=== PATIENT | male | born 1965 | race Hispanic/Latino ===

== ENCOUNTER 2017-08-29 14:04 | Inpatient (IN) | payer BC ==
--- NOTE | 2017-08-29 15:22 | C.PDOC ---
History Of Present Illness 51 y/o male presents to ED for prescreen for detox from alcohol. Patient states last drink was this morning. Patient states a month ago he had throat cancer and surgery done and will be due for chemo and radiation the end of this month. Time Seen by Provider: 08/29/17 14:27 Chief Complaint (Nursing): Substance Abuse History Per: Patient History/Exam Limitations: no limitations Onset/Duration Of Symptoms: Hrs Current Symptoms Are (Timing): Still Present Suicide/Self Injury Attempted (Context): None Modifying Factor(s): Alcohol Associated Symptoms: denies: Suicidal Thoughts, Suicidal Plan Involuntary Hold By: None Recent travel outside of the [place]: No Past Medical History Reviewed: Historical Data, Nursing Documentation, Vital Signs Vital Signs: Last Vital Signs Temp 99.1 F 08/29/17 19:41 Pulse 85 08/29/17 19:41 Resp 20 08/29/17 19:41 BP 124/71 08/29/17 19:41 Pulse Ox 99 08/29/17 19:41 - Medical History PMH: No Chronic Diseases Surgical History: No Surg Hx Family History: States: No Known Family Hx - Social History Hx Alcohol Use: Yes Hx Substance Use: No Review Of Systems Constitutional: Negative for: Fever, Chills Gastrointestinal: Negative for: Nausea, Vomiting, Abdominal Pain, Diarrhea Skin: Negative for: Rash Neurological: Negative for: Weakness, Numbness Psych: Negative for: Suicidal ideation Physical Exam - Physical Exam Appears: Well, Non-toxic, No Acute Distress Skin: Normal Color, Warm, Dry Head: Atraumatic, Normacephalic Eye(s): bilateral: Normal Inspection, PERRL, EOMI Oral Mucosa: Moist Neck: Supple Cardiovascular: Rhythm Regular, No Murmur Respiratory: Normal Breath Sounds, No Decreased Breath Sounds, No Rales, No Rhonchi, No Wheezing Gastrointestinal/Abdominal: Soft, No Tenderness Extremity: Normal ROM, No Deformity Extremity: Bilateral: Atraumatic, Normal Color And Temperature, Normal ROM Neurological/Psych: Oriented x3 (Awake and Alert), Normal Speech Gait: Steady ED Course And Treatment - Laboratory Results Result Diagrams: 08/29/17 15:24 08/29/17 15:24 Lab Interpretation: No Acute Changes O2 Sat by Pulse Oximetry: 100 (RA) Pulse Ox Interpretation: Normal Progress Note: Patient is medically cleared for a detox admission. Medical Decision Making Medical Decision Making: Ordered blood work and urinalysis. Disposition - Disposition Disposition: HOSPITALIZED Disposition Time: 19:56 Condition: STABLE - POA Present On Arrival: None - Clinical Impression Clinical Impression: Alcohol dependence - Scribe Statement The provider has reviewed the documentation as recorded by the Dami Cheek All medical record entries made by the Rishabhibkim were at my direction and personally dictated by me. I have reviewed the chart and agree that the record accurately reflects my personal performance of the history, physical exam, medical decision making, and the department course for this patient. I have also personally directed, reviewed, and agree with the discharge instructions and disposition.
[2017-08-29 15:28] LABS: EOS % 0.1 % (0.0-4.0); MONO # 0.7 K/uL (0.0-0.8); NEUT # 3.6 K/uL (1.8-7.0); RED CELL DISTRIBUTION WIDTH 14.5 % (11.5-14.5)
[2017-08-29 15:33] LABS: SQUAMOUS EPITHIAL < 1 /hpf (0-5); URINE BILIRUBIN NEGATIVE (NEGATIVE); URINE BLOOD NEGATIVE (NEGATIVE); URINE CLARITY Hazy (Clear); URINE COLOR Amber (YELLOW); URINE GLUCOSE (UA) NORMAL (Normal); URINE LEUKOCYTE ESTERASE NEG Leu/uL (Negative); URINE PROTEIN 1+ mg/dL (NEGATIVE)
[2017-08-29 15:34] LABS: BASO % 0.7 % (0.0-2.0); HEMOGLOBIN 13.1 g/dL (12.0-18.0); LYMPH # 0.8 K/uL (1.0-4.3); LYMPH % 14.7 % (20.0-40.0); MEAN CELL VOLUME 97.5 fL (80.0-94.0); MEAN CORPUSCULAR HEMOGLOBIN 34.5 pg (27.0-31.0); MEAN CORPUSCULAR HGB CONC 35.4 g/dL (33.0-37.0); MONO % 13.9 % (0.0-10.0); NEUT % 70.6 % (50.0-75.0); RBC 3.79 Mil/uL (4.40-5.90); WHITE BLOOD COUNT 5.1 K/uL (4.8-10.8)
[2017-08-29 15:40] LABS: ALB/GLOB RATIO 1.4 (1.0-2.1); ALBUMIN 4.3 g/dL (3.5-5.0); ALT/SGPT 64 U/L (21-72); AST/SGOT 129 U/L (17-59); BLOOD UREA NITROGEN 12 mg/dL (9-20); CALCIUM 9.2 mg/dl (8.6-10.4); GFR AFRICAN-AMERICAN > 60; GFR NON-AFRICAN AMERICAN > 60
[2017-08-29 16:14] LABS: BARBITURATES, UR NEGATIVE (NEGATIVE); OPIATES, UR NEGATIVE (NEGATIVE); PHENCYCLIDINE, UR NEGATIVE (NEGATIVE)
[2017-08-29 16:18] LABS: BENZODIAZEPINES, UR POSITIVE (NEGATIVE)
--- NOTE | 2017-08-29 19:15 | CP.PCM.HP ---
History of Present Illness - History of Present Illness History of Present Illness: PGY1 Medicine Note for Dr. Keller Patient is a 51 year old male with a past medical history of alcohol abuse and throat cancer s/p surgery (performed on 08/03/17). Patient presented for detox from alcohol. He recently had surgery for his throat cancer and is scheduled to start chemo and radiation at the end of the month. He has previously gone through detox approximately 4 years ago, which resulted in him having a seizure after quitting. He was sober for 2 years but has "fallen off the wagon" multiple times over the past two years. When he got his diagnosis of throat cancer, he started binge drinking heavily again and has been drinking 1-2 pints of vodka per day for the past 3 to 4 months. He wants to quit alcohol and chewing tobacco prior to starting chem and radiation because "I want to give myself the best chance to live a good, long life." Patient reports his last drink was this morning. He has notice a little bit of a hand tremor but has no other complaints at this time. Denies fevers, chills, nausea, vomiting, diarrhea , constipation, chest pain, shortness of breath, palpitations, abdominal pain, headaches, blurred vision, diaphoresis, numbness or tingling. PMH: alcohol abuse and throat cancer PSH: throat surgery (08/03/17) and cholecystectomy Family: mom of lung cancer, dad of heart/carotid disease Social: active chewing tobacco, drinks 1-2 pints of vodka per night, denies illicit drug use Meds: none Allergies: NKDA Patient had surgery with Dr. Cowan (ENT) at [facility] on 08/03/17. Planning to start chemo and radiation at [facility] at the end of the month. Present on Admission - Present on Admission Any Indicators Present on Admission: No Review of Systems - Review of Systems All systems: reviewed and no additional remarkable complaints except (as per HPI ) Past Patient History - Infectious Disease Hx of Infectious Diseases: None - Past Social History Smoking Status: Light Smoker < 10 Cigarettes Daily - CARDIAC Hx Cardiac Disorders: No Hx Hypertension: No - PULMONARY Hx Tuberculosis: No - NEUROLOGICAL HX Cerebrovascular Accident: No Hx Seizures: No - HEMATOLOGICAL/ONCOLOGICAL Hx Cancer: Yes (s/p throat cancer surgery August 03, 2017) Hx Human Immunodeficiency Virus (HIV): No - GENITOURINARY/GYNECOLOGICAL Hx Sexually Transmitted Disorders: No - PSYCHIATRIC Hx Substance Use: No - ANESTHESIA Hx Anesthesia: No Meds Allergies/Adverse Reactions: Allergies Allergy/AdvReac Type Severity Reaction Status Date / Time No Known Allergies Allergy Unverified 08/29/17 14:36 Physical Exam - Constitutional Appears: Non-toxic, No Acute Distress - Head Exam Head Exam: ATRAUMATIC, NORMOCEPHALIC - Eye Exam Eye Exam: EOMI, Normal appearance - ENT Exam ENT Exam: Mucous Membranes Moist - Neck Exam Neck exam: Negative for: Lymphadenopathy - Respiratory Exam Respiratory Exam: Clear to Auscultation Bilateral, NORMAL BREATHING PATTERN. absent: Accessory Muscle Use, Rales, Rhonchi, Wheezes, Respiratory Distress - Cardiovascular Exam Cardiovascular Exam: REGULAR RHYTHM, +S1, +S2 - GI/Abdominal Exam GI & Abdominal Exam: Normal Bowel Sounds, Soft. absent: Distended, Firm, Guarding, Rebound, Rigid, Tenderness - Extremities Exam Extremities exam: Negative for: calf tenderness, pedal edema, tenderness Additional comments: mild hand tremors noted. - Neurological Exam Neurological exam: Alert, CN II-XII Intact, Oriented x3 Additional comments: mild hand tremors noted - Psychiatric Exam Psychiatric exam: Normal Affect, Normal Mood - Skin Skin Exam: Dry, Warm Results - Vital Signs Recent Vital Signs: Last Vital Signs Temp 98.9 F 08/29/17 14:29 Pulse 88 08/29/17 18:30 Resp 18 08/29/17 18:30 BP 128/82 08/29/17 18:30 Pulse Ox 99 08/29/17 18:30 - Labs Result Diagrams: 08/29/17 15:24 08/29/17 15:24 Labs: Laboratory Results - last 24 hr 08/29/17 08/29/17 08/29/17 15:24 15:24 15:24 WBC 5.1 RBC 3.79 L Hgb 13.1 Hct 36.9 MCV 97.5 H MCH 34.5 H MCHC 35.4 RDW 14.5 Plt Count 84 L MPV 8.0 Neut % (Auto) 70.6 Lymph % (Auto) 14.7 L [place] % (Auto) 13.9 H Eos % (Auto) 0.1 Baso % (Auto) 0.7 Neut # (Auto) 3.6 Lymph # (Auto) 0.8 L [place] # (Auto) 0.7 Eos # (Auto) 0.0 Baso # (Auto) 0.0 Differential Comment Sodium 140 Potassium 5.1 Chloride 104 Carbon Dioxide 25 Anion Gap 17 BUN 12 Creatinine 0.8 Est GFR ( Amer) > 60 Est GFR (Non-Af Amer) > 60 Random Glucose 91 Calcium 9.2 Total Bilirubin 2.8 H AST 129 H ALT 64 Alkaline Phosphatase 100 Total Protein 7.4 Albumin 4.3 Globulin 3.1 Albumin/Globulin Ratio 1.4 Urine Color [place] Urine Clarity Hazy Urine pH 5.0 Ur Specific [place] 1.026 Urine Protein 1+ H Urine Glucose (UA) Normal Urine Ketones Trace Urine Blood Negative Urine Nitrate Negative Urine Bilirubin Negative Urine Urobilinogen 2.0 Ur Leukocyte Esterase Neg Urine WBC (Auto) 3 Urine RBC (Auto) 2 Ur Squamous Epith Cells < 1 Hyaline Casts 11-20 H Urine Opiates Screen Urine Methadone Screen Ur Barbiturates Screen Ur Phencyclidine Scrn Ur Amphetamines Screen U Benzodiazepines Scrn U Oth Cocaine Metabols U Cannabinoids Screen Alcohol, Quantitative < 10 08/29/17 15:24 WBC RBC Hgb Hct MCV MCH MCHC RDW Plt Count MPV Neut % (Auto) Lymph % (Auto) [place] % (Auto) Eos % (Auto) Baso % (Auto) Neut # (Auto) Lymph # (Auto) [place] # (Auto) Eos # (Auto) Baso # (Auto) Differential Comment Sodium Potassium Chloride Carbon Dioxide Anion Gap BUN Creatinine Est GFR ( Amer) Est GFR (Non-Af Amer) Random Glucose Calcium Total Bilirubin AST ALT Alkaline Phosphatase Total Protein Albumin Globulin Albumin/Globulin Ratio Urine Color Urine Clarity Urine pH Ur Specific [place] Urine Protein Urine Glucose (UA) Urine Ketones Urine Blood Urine Nitrate Urine Bilirubin Urine Urobilinogen Ur Leukocyte Esterase Urine WBC (Auto) Urine RBC (Auto) Ur Squamous Epith Cells Hyaline Casts Urine Opiates Screen Negative Urine Methadone Screen Negative Ur Barbiturates Screen Negative Ur Phencyclidine Scrn Negative Ur Amphetamines Screen Negative U Benzodiazepines Scrn Positive U Oth Cocaine Metabols Negative U Cannabinoids Screen Negative Alcohol, Quantitative Assessment & Plan - Assessment and Plan (Free Text) Plan: Alcohol Abuse CIWA protocol Aspiration precaution Seizure precaution Fall risk Banana Bag Ativan 2mg IVP q4h taper scheduled Ativan 2mg IVP q4h prn Ativan 2mg IM q4h prn Clonidine 0.1 mg PO q4h prn - give for SBP >160 Prophylactic Care SCDs Lovenox 40mg SC daily Protonix 40mg PO daily Case discussed with Dr. Arianna Daniels Kimberly PGY1
[2017-08-29] MEDS ORDERED: Folic Acid 1 MG, Thiamine 100 MG, Multivitamin (MVI) 10 ML in Dextrose 5% In Water 1,00... IV SCH ×2 (19:30)
[2017-08-30 08:06] LABS: BASO % 0.5 % (0.0-2.0); EOS % 1.1 % (0.0-4.0); HEMOGLOBIN 12.1 g/dL (12.0-18.0); LYMPH % 31.2 % (20.0-40.0); MEAN CELL VOLUME 98.1 fL (80.0-94.0); MEAN CORPUSCULAR HGB CONC 34.7 g/dL (33.0-37.0); MEAN PLATELET VOLUME 7.8 fL (7.2-11.7); MONO # 0.5 K/uL (0.0-0.8); MONO % 16.1 % (0.0-10.0); NEUT # 1.6 K/uL (1.8-7.0); NEUT % 51.1 % (50.0-75.0); NRBC % 0.2 % (0.0-2.0); RBC 3.56 Mil/uL (4.40-5.90); RED CELL DISTRIBUTION WIDTH 14.9 % (11.5-14.5); WHITE BLOOD COUNT 3.1 K/uL (4.8-10.8)
[2017-08-30 08:09] LABS: PROTHROMBIN TIME 11.3 SECONDS (9.7-12.2)
[2017-08-30 08:35] LABS: ALB/GLOB RATIO 1.3 (1.0-2.1); ALBUMIN 3.7 g/dL (3.5-5.0); ALT/SGPT 57 U/L (21-72); AST/SGOT 74 U/L (17-59); BLOOD UREA NITROGEN 10 mg/dL (9-20); CALCIUM 8.7 mg/dl (8.6-10.4); GFR AFRICAN-AMERICAN > 60; GFR NON-AFRICAN AMERICAN > 60
[2017-08-30] MEDS: Pantoprazole 40 mg EC Tab PO SCH (09:37)
[2017-08-30] MEDS ORDERED: Enoxaparin 40 mg Syringe SC SCH (10:00)
--- NOTE | 2017-08-30 11:48 | CP.PCM.PN ---
<Jeremiah Harris - Last Filed: 08/30/17 18:33> Subjective - Date & Time of Evaluation Date of Evaluation: 08/30/17 Time of Evaluation: 09:30 - Subjective Subjective: PGY1 Medicine Note for Dr. Deutsch Patient was seen and examined at bedside this morning. No acute events overnight. Patient reports mild tremors in hands but otherwise has no complaints. He has chewing tobacco at bedside. He requests a nicotine patch so he does not need to chew tobacco. Denies fevers, chills, nausea, vomiting, diarrhea, constipation, chest pain, shortness of breath, palpitations, abdominal pain, headaches, blurred vision, diaphoresis, numbness or tingling. Objective - Vital Signs/Intake and Output Vital Signs (last 24 hours): Temp Pulse Resp BP Pulse Ox 98.0 F 69 20 146/91 H 98 08/30/17 08:03 08/30/17 08:03 08/30/17 08:03 08/30/17 08:03 08/30/17 08:03 Intake and Output: 08/30/17 08/30/17 06:59 18:59 Intake Total 450 Balance 450 - Medications Medications: Current Medications Clonidine HCl (Catapres) 0.1 mg PO Q4H PRN PRN Reason: Symptoms of alcohol withdrawl Enoxaparin Sodium (Lovenox) 40 mg SC DAILY [facility] Last Admin: 08/30/17 09:36 Dose: 40 mg Folic Acid 1 mg/ Thiamine HCl 100 mg/ Multivitamins/Vitamin C 10 ml/ Dextrose 1 ,011.2 mls @ 100 mls/hr IV Q24H [facility] Last Admin: 08/29/17 20:13 Dose: 100 mls/hr Lorazepam (Ativan) 2 mg IVP Q4H PRN PRN Reason: Symptoms of alcohol withdrawl Lorazepam (Ativan) 2 mg IM Q4H PRN PRN Reason: Symptoms of alcohol withdrawl Lorazepam (Ativan) 2 mg IVP Q4 [facility] PRN Reason: Taper Stop: 09/03/17 19:21 Last Admin: 08/30/17 08:28 Dose: 2 mg Nicotine (Nicoderm Cq) 1 patch TD DAILY [facility] Pantoprazole Sodium (Protonix Ec Tab) 40 mg PO DAILY [facility] Last Admin: 08/30/17 09:37 Dose: 40 mg - Labs Labs: 08/30/17 07:51 08/30/17 07:51 PT 11.3 SECONDS (9.7-12.2) 08/30/17 07:51 INR 1.0 08/30/17 07:51 APTT 31 SECONDS (21-34) 08/30/17 07:51 - Constitutional Appears: Non-toxic, No Acute Distress - Head Exam Head Exam: ATRAUMATIC - Eye Exam Eye Exam: EOMI, Normal appearance Pupil Exam: NORMAL ACCOMODATION - ENT Exam ENT Exam: Mucous Membranes Moist, Normal Exam - Neck Exam Neck Exam: absent: Lymphadenopathy - Respiratory Exam Respiratory Exam: Clear to Ausculation Bilateral, NORMAL BREATHING PATTERN. absent: Accessory Muscle Use, Rales, Rhonchi, Wheezes, Respiratory Distress - Cardiovascular Exam Cardiovascular Exam: REGULAR RHYTHM, +S1, +S2 - GI/Abdominal Exam GI & Abdominal Exam: Soft, Normal Bowel Sounds. absent: Distended, Firm, Guarding, Rigid - Extremities Exam Extremities Exam: absent: Calf Tenderness, Pedal Edema - Neurological Exam Neurological Exam: Alert, Awake, CN II-XII Intact. absent: Oriented x3 Additional comments: mild hand tremors - Psychiatric Exam Psychiatric exam: Normal Affect, Normal Mood - Skin Skin Exam: Dry, Warm Assessment and Plan - Assessment and Plan (Free Text) Plan: Alcohol Abuse [facility] protocol Aspiration precaution Seizure precaution Fall risk Folic Acid 1mg PO daily Multivitamin 1 tab PO daily Thiamine 100mg PO daily Librium taper Librium 25mg PO q4h prn Clonidine 0.1 mg PO q4h prn - give for SBP >160 Tobacco abuse Started on Nicotine patch 21mg/24hr TD daily threw chewing tobacco into trash can. Prophylactic Care No anticoagulation due to thrombocytopenia SCDs Protonix 40mg PO daily Patient is medically stable to be transferred to detox. Psych will be taking over as primary care. Please consult as needed. Medicine team signing off. Case discussed with Dr. La Nena Daniels Kimberly PGY1 <Cristian Deutsch - Last Filed: 08/30/17 19:01> Objective - Vital Signs/Intake and Output Vital Signs (last 24 hours): Temp Pulse Resp BP Pulse Ox 99 F 87 18 128/75 100 08/30/17 16:41 08/30/17 16:41 08/30/17 16:41 08/30/17 16:41 08/30/17 16:41 Intake and Output: 08/30/17 08/30/17 06:59 18:59 Intake Total 450 Balance 450 - Medications Medications: Current Medications Chlordiazepoxide (Librium) 25 mg PO Q6H [facility]RY PRN Reason: Taper Stop: 09/04/17 11:59 Last Admin: 08/30/17 17:24 Dose: 25 mg Chlordiazepoxide (Librium) 25 mg PO Q4H PRN PRN Reason: Alcohol Withdrawal Clonidine HCl (Catapres) 0.1 mg PO Q4H PRN PRN Reason: Symptoms of alcohol withdrawl Folic Acid (Folic Acid) 1 mg PO DAILY [facility] Last Admin: 08/30/17 12:54 Dose: 1 mg Multivitamins (Hexavitamin) 1 tab PO DAILY [facility] Last Admin: 08/30/17 12:54 Dose: 1 tab Nicotine (Nicoderm Cq) 1 patch TD DAILY [facility] Last Admin: 08/30/17 12:54 Dose: 1 patch Pantoprazole Sodium (Protonix Ec Tab) 40 mg PO DAILY [facility] Last Admin: 08/30/17 09:37 Dose: 40 mg Thiamine HCl (Vitamin B1 Tab) 100 mg PO DAILY [facility] Last Admin: 08/30/17 12:53 Dose: 100 mg Trazodone HCl (Desyrel) 50 mg PO HS PRN PRN Reason: Insomnia - Labs Labs: 08/30/17 07:51 08/30/17 07:51 PT 11.3 SECONDS (9.7-12.2) 08/30/17 07:51 INR 1.0 08/30/17 07:51 APTT 31 SECONDS (21-34) 08/30/17 07:51 Attending/Attestation - Attestation I have personally seen and examined this patient.: Yes I have fully participated in the care of the patient.: Yes I have reviewed all pertinent clinical information, including history, physical exam and plan: Yes Notes (Text): 08/30/17 18:57 Medical attending: Patient was seen and examined by me, agree with the above note by the resident It needs to be noted that when we walked into the room that we saw that there was a jarr of chewing tobbaco at his bedside table. This made for a very awkward conversation - I pointed out to the patient that he already has a malignancy due to his history of chewing tobbaco as well as alcohol - it took about 30 seconds before the patient even acknowledged that he needed to change his life style. After completeling detox he explains that he is trying to do chemo at [facility]
[2017-08-30] MEDS: Multiple Vitamins Tab PO SCH (12:54)
--- NOTE | 2017-08-31 08:28 | PCM.PSYCH ---
Initial Psychiatric Evaluation - Initial Psychiatric Evaluation Type of Admission: Voluntary Legal Status: Capacity Chief Complaint (in patient's own words): "Alcohol" History of Present Illness and Precipitating Events: The patient is seen, chart reviewed and case discussed. This is a 51-year-old male, with 2 children, both adults, lives with his , employed. The patient is using 2 pints of liquor every day and reports significant withdrawal symptoms. He has a long history of alcohol use and complications, but he also used on and off over the years and he finally relapsed 2 years ago. He denies drug use He has mild depressive symptoms He was also admitted to medicine on his first day because of significant withdrawal symptoms as well as low platelets. Past psych history: He was treated for depression years ago. Family psych history: Brother of drug and alcohol use. Father had alcohol dependence but clean. Medical history: He had conquered cancer and low platelets. Current Medications: Active Medications Generic Name Dose Route Start Last Admin Trade Name Freq PRN Reason Stop Dose Admin Chlordiazepoxide 25 mg 08/30/17 12:00 08/31/17 06:10 Librium PO 09/04/17 11:59 25 mg Q6H [facility]ENRY Administration Taper Chlordiazepoxide 25 mg 08/30/17 12:07 Librium PO Q4H PRN Alcohol Withdrawal Clonidine HCl 0.1 mg 08/29/17 19:18 Catapres PO Q4H PRN Symptoms of alcohol withdrawl Folic Acid 1 mg 08/30/17 12:15 08/30/17 12:54 Folic Acid PO 1 mg DAILY [facility] Administration Multivitamins 1 tab 08/30/17 12:15 08/30/17 12:54 Hexavitamin PO 1 tab DAILY [facility] Administration Nicotine 1 patch 08/30/17 11:45 08/30/17 12:54 Nicoderm Cq TD 1 patch DAILY [facility] Administration Pantoprazole Sodium 40 mg 08/30/17 10:00 08/30/17 09:37 Protonix Ec Tab PO 40 mg DAILY [facility] Administration Thiamine HCl 100 mg 08/30/17 12:15 08/30/17 12:53 Vitamin B1 Tab PO 100 mg DAILY [facility] Administration Trazodone HCl 50 mg 08/30/17 12:07 08/30/17 21:44 Desyrel PO 50 mg HS PRN Administration Insomnia Past Psychiatric History - Past Psychiatric History Previous Treatment History: Intensive Outpatient Pertinent Medical Hx (Current Medical&Sleep Prob, Allergies): Allergies Allergy/AdvReac Type Severity Reaction Status Date / Time No Known Allergies Allergy Unverified 08/29/17 14:36 Review of Systems - Neurological Neurological: Tremor - Psychiatric Psychiatric: Abnormal Sleep Pattern, Anxiety, Change in Appetite, Difficulty Concentrating. absent: Hallucinations, Homicidal Ideation, Paranoia, Suicidal Ideation Mental Status Examination - Personal Presentation Personal Presentation: Looks stated age - Affect Affect: Constricted - Motor Activity Motor Activity: Calm - Reliability in Providing Information Reliability in Providing Information: Good - Speech Speech: Organized - Mood Mood: Depressed, Anxious - Formal Thought Process Formal Thought Process: No Impairment - Cognitive Functions Orientation: Person, Place, Situation, Time Sensorium: Alert Attention/Concentration: Attentive Estimate of Intelligence: Average Judgement: Intact, as evidence by: Insight regarding need for hospitalization Memory: Recent intact, as evidence by: Ability to recall events of the day, Remote intact, as evidenced by: Abilit to recall sig. life events - Risk Risk: Withdrawal, Diminished functioning - Strength & Assets Inventory Strength & Assets Inventory: Cooperative - Limitations Limitations: Other DSM 5 DX - DSM 5 DSM 5 Diagnosis: Alcohol withdrawal with complication Alcohol use disorder, severe Depressive disorder unspecified - Recommended/Plan of Treatment Treatment Recommendations and Plan of Treatment: Taper with Librium Gabapentin for augmentation if needed As needed medications All risks, benefits and alternatives of the meds discussed, and the pt agreed and understood. No medications for depression for now but CBT and support Attend groups and activities Supportive therapy and psychoeducation [place] for abstinence CBT for relapse prevention Encourage MAT Refer to rehab or IOP, and self-help groups Smoking cessation with OH Nicotine patch if needed 34 min Projected ELOS: 5 days Prognosis: Good with treatment and good aftercare Discharge Plan and Discharge Criteria: Refer to IOP and consider naltrexone/Topamax - Smoking Cessation Smoking Cessation Initiated: Yes
[2017-08-31 08:32] LABS: BASO % 0.4 % (0.0-2.0); EOS % 1.6 % (0.0-4.0); HEMOGLOBIN 11.7 g/dL (12.0-18.0); LYMPH % 32.9 % (20.0-40.0); MEAN CORPUSCULAR HEMOGLOBIN 34.2 pg (27.0-31.0); MEAN CORPUSCULAR HGB CONC 34.6 g/dL (33.0-37.0); MEAN PLATELET VOLUME 8.5 fL (7.2-11.7); MONO # 0.4 K/uL (0.0-0.8); MONO % 14.5 % (0.0-10.0); NEUT # 1.5 K/uL (1.8-7.0); NEUT % 50.6 % (50.0-75.0); NRBC % 0.1 % (0.0-2.0); RBC 3.42 Mil/uL (4.40-5.90); RED CELL DISTRIBUTION WIDTH 15.4 % (11.5-14.5)
[2017-08-31 08:41] LABS: ALB/GLOB RATIO 1.3 (1.0-2.1); ALBUMIN 3.6 g/dL (3.5-5.0); ALT/SGPT 52 U/L (21-72); AST/SGOT 60 U/L (17-59); BLOOD UREA NITROGEN 11 mg/dL (9-20); CALCIUM 9.1 mg/dl (8.6-10.4); GFR AFRICAN-AMERICAN > 60; GFR NON-AFRICAN AMERICAN > 60
[2017-08-31] MEDS: Pantoprazole 40 mg EC Tab PO SCH (09:16)
[2017-08-31] MEDS: Multiple Vitamins Tab PO SCH (09:16)
[2017-09-01 08:34] LABS: BASO % 0.4 % (0.0-2.0); EOS # 0.1 K/uL (0.0-0.7); EOS % 1.5 % (0.0-4.0); HEMOGLOBIN 11.7 g/dL (12.0-18.0); LYMPH # 1.1 K/uL (1.0-4.3); LYMPH % 29.4 % (20.0-40.0); MEAN CELL VOLUME 99.1 fL (80.0-94.0); MEAN CORPUSCULAR HEMOGLOBIN 34.2 pg (27.0-31.0); MEAN CORPUSCULAR HGB CONC 34.5 g/dL (33.0-37.0); MEAN PLATELET VOLUME 7.6 fL (7.2-11.7); MONO # 0.6 K/uL (0.0-0.8); MONO % 15.3 % (0.0-10.0); NEUT % 53.4 % (50.0-75.0); RBC 3.41 Mil/uL (4.40-5.90); RED CELL DISTRIBUTION WIDTH 15.2 % (11.5-14.5); WHITE BLOOD COUNT 3.7 K/uL (4.8-10.8)
[2017-09-01 08:53] LABS: ALB/GLOB RATIO 1.3 (1.0-2.1); ALBUMIN 3.6 g/dL (3.5-5.0); ALT/SGPT 51 U/L (21-72); AST/SGOT 60 U/L (17-59); BLOOD UREA NITROGEN 15 mg/dL (9-20); CALCIUM 8.9 mg/dl (8.6-10.4); GFR AFRICAN-AMERICAN > 60; GFR NON-AFRICAN AMERICAN > 60
--- NOTE | 2017-09-01 09:13 | PCM.PYCHPN ---
Psychiatric Progress Note - Psychiatric Progress Note Patient seen today, length of contact: 25 min Patient Chief Complaint: "I am depressed" Problems Identified/Issues Discussed: The pt is seen, chart reviewed, case discussed with staff. Support and psychoeducation given, CBT and NM used briefly No new wdw symptoms reported, improving slowly and needs more time He revealed his depression and "lots of" stressors, ie he may lose his job bc of a recent DUI No SEs from medications, risks discussed, incl. Lexapro for depression. After care discussed Support given Medication Change: Yes (Detox changes daily, add lexapro) Medical Record Reviewed: Yes Mental Status Examination - Cognitive Function Orientation: Person, Place, Situation, Time Memory: Intact Attention: WNL Concentration: Poor Association: WNL Fund of Knowledge: WNL - Mood Mood: Depressed, Anxious - Affect Affect: Constricted - Speech Speech: Appropriate - Formal Thought Process Formal Thought Process: No Impairment - Suicidal Ideation Suicidal Ideation: No - Homicidal Ideation Homicidal Ideation: No Goal/Treatment Plan - Goal/Treatment Plan Need for Continued Stay: Discharge may exacerbated symptoms, Severe functional impairment Progress Toward Problem(s) and Goals/Treatment Plan: Taper with Librium Gabapentin for augmentation if needed lexapro for depression As needed medications All risks, benefits and alternatives of the meds discussed, and the pt agreed and understood. No medications for depression for now but CBT and support Attend groups and activities Supportive therapy and psychoeducation NM for abstinence CBT for relapse prevention Encourage MAT Refer to rehab or IOP, and self-help groups Smoking cessation with NM Nicotine patch if needed Estimated Date of D/C: 09/03/17 - Smoking Cessation Smoking Cessation Initiated: Yes
--- NOTE | 2017-09-01 09:18 | PCM.BM ---
<FabricioHakeem - Last Filed: 09/01/17 09:16> Treatment assets and liabiliti Patient Assests: motivated, ADL independent, negotiates basic needs Patient Liabilities: poor support system, substance abuse - Milieu Protocol Maintain good personal hygiene: daily Encourage regular showers, daily Remind patient to perform daily oral care, daily Assist patient to perform ADL's Maintain personal safety: every shift Educate patient to report safety concerns to staff, every shift Monitor environment for contraband/sharps Medication safety: Monitor for expected outcome, potential side effects: every shift, Assess barriers to learning: every shift, Assess readiness for medication education: every shift Milieu Narrative: Taper with Librium Gabapentin for augmentation if needed As needed medications All risks, benefits and alternatives of the meds discussed, and the pt agreed and understood. No medications for depression for now but CBT and support Attend groups and activities Supportive therapy and psychoeducation [place] for abstinence CBT for relapse prevention Encourage MAT Refer to rehab or IOP, and self-help groups Smoking cessation with CA Nicotine patch if needed 34 min Discharge/Continuing Care - Treatment Team Participation Patient/Family/SO Statement: Taper with Librium Gabapentin for augmentation if needed As needed medications All risks, benefits and alternatives of the meds discussed, and the pt agreed and understood. No medications for depression for now but CBT and support Attend groups and activities Supportive therapy and psychoeducation [place] for abstinence CBT for relapse prevention Encourage MAT Refer to rehab or IOP, and self-help groups Smoking cessation with CA Nicotine patch if needed 34 min <Parish Shelton - Last Filed: 09/01/17 13:57> - Diagnosis (1) Alcohol dependence Status: Acute Interventions: 09/01/17 13:57 * Assess 7x/week regarding severity of withdrawal * Educate regarding risks, benefits, side effects and alternatives of medications * Use Motivational Interviewing for abstinence * Use CBT for relapse prevention * Medication management for withdrawal symptoms * Encourage medication assisted treatment *
[2017-09-01] MEDS: Multiple Vitamins Tab PO SCH (09:41)
[2017-09-01] MEDS: Pantoprazole 40 mg EC Tab PO SCH (09:41)
--- NOTE | 2017-09-01 18:57 | PCM.PYCHPN ---
Psychiatric Progress Note - Psychiatric Progress Note Patient seen today, length of contact: 16 min Patient Chief Complaint: "Anxious" Problems Identified/Issues Discussed: The pt is seen, chart reviewed, case discussed with staff. The pt is compliant with medications and reports no side-effects. Symptoms are improving but needs more time to stabilize. After care discussed, support and psychoeducation given. Anxiety and depression discussed He is also worried about his after care Medication Change: Yes (Detox changes daily) Medical Record Reviewed: Yes Mental Status Examination - Cognitive Function Orientation: Person, Place, Situation, Time Memory: Intact Attention: WNL Concentration: Poor Association: WNL Fund of Knowledge: WNL - Mood Mood: Depressed, Anxious - Affect Affect: Constricted - Speech Speech: Appropriate - Formal Thought Process Formal Thought Process: No Impairment - Suicidal Ideation Suicidal Ideation: No - Homicidal Ideation Homicidal Ideation: No Goal/Treatment Plan - Goal/Treatment Plan Need for Continued Stay: Discharge may exacerbated symptoms, Severe functional impairment Progress Toward Problem(s) and Goals/Treatment Plan: Taper with Librium Gabapentin for augmentation if needed lexapro for depression As needed medications All risks, benefits and alternatives of the meds discussed, and the pt agreed and understood. No medications for depression for now but CBT and support Attend groups and activities Supportive therapy and psychoeducation PR for abstinence CBT for relapse prevention Encourage MAT Refer to rehab or IOP, and self-help groups Smoking cessation with PR Nicotine patch if needed Estimated Date of D/C: 09/03/17
[2017-09-02 08:51] LABS: BASO % 0.5 % (0.0-2.0); EOS # 0.1 K/uL (0.0-0.7); EOS % 1.9 % (0.0-4.0); HEMOGLOBIN 11.4 g/dL (12.0-18.0); LYMPH # 1.1 K/uL (1.0-4.3); LYMPH % 29.5 % (20.0-40.0); MEAN CELL VOLUME 99.2 fL (80.0-94.0); MEAN CORPUSCULAR HEMOGLOBIN 34.7 pg (27.0-31.0); MEAN PLATELET VOLUME 7.9 fL (7.2-11.7); MONO # 0.6 K/uL (0.0-0.8); MONO % 16.2 % (0.0-10.0); NEUT # 1.9 K/uL (1.8-7.0); NEUT % 51.9 % (50.0-75.0); NRBC % 0.1 % (0.0-2.0); RBC 3.3 Mil/uL (4.40-5.90); RED CELL DISTRIBUTION WIDTH 15.3 % (11.5-14.5); WHITE BLOOD COUNT 3.7 K/uL (4.8-10.8)
[2017-09-02 09:04] LABS: ALB/GLOB RATIO 1.3 (1.0-2.1); ALBUMIN 3.6 g/dL (3.5-5.0); ALT/SGPT 53 U/L (21-72); AST/SGOT 53 U/L (17-59); BLOOD UREA NITROGEN 19 mg/dL (9-20); CALCIUM 9.2 mg/dl (8.6-10.4); GFR AFRICAN-AMERICAN > 60; GFR NON-AFRICAN AMERICAN > 60
[2017-09-02] MEDS: Multiple Vitamins Tab PO SCH (09:57)
[2017-09-02] MEDS: Pantoprazole 40 mg EC Tab PO SCH (09:57)
--- NOTE | 2017-09-02 11:50 | PCM.PYCHPN ---
Psychiatric Progress Note - Psychiatric Progress Note Patient seen today, length of contact: 16 min Patient Chief Complaint: "Better today" Problems Identified/Issues Discussed: The pt is seen, chart reviewed, case discussed with staff. Support and psychoeducation given, CBT and ME used briefly No new symptoms reported, improving slowly and needs more time No SEs from medications, risks discussed, incl. need for a LFT for naltrexone in a month. After care discussed Medication Change: Yes (Detox changes daily) Medical Record Reviewed: Yes Mental Status Examination - Cognitive Function Orientation: Person, Place, Situation, Time Memory: Intact Attention: WNL Concentration: Poor Association: WNL Fund of Knowledge: WNL - Mood Mood: Depressed, Anxious - Affect Affect: Constricted - Speech Speech: Appropriate - Formal Thought Process Formal Thought Process: No Impairment - Suicidal Ideation Suicidal Ideation: No - Homicidal Ideation Homicidal Ideation: No Goal/Treatment Plan - Goal/Treatment Plan Need for Continued Stay: Discharge may exacerbated symptoms, Severe functional impairment Progress Toward Problem(s) and Goals/Treatment Plan: Taper with Librium Gabapentin for augmentation if needed lexapro for depression As needed medications All risks, benefits and alternatives of the meds discussed, and the pt agreed and understood. No medications for depression for now but CBT and support Attend groups and activities Supportive therapy and psychoeducation ME for abstinence CBT for relapse prevention Encourage MAT: Naltrexone started Refer to rehab or IOP, and self-help groups Smoking cessation with ME Nicotine patch if needed Estimated Date of D/C: 09/03/17
[2017-09-03 06:44] VITALS: RESP 18; O2SAT 99
[2017-09-03 08:10] LABS: BASO % 0.8 % (0.0-2.0); EOS # 0.1 K/uL (0.0-0.7); EOS % 1.9 % (0.0-4.0); LYMPH % 29.3 % (20.0-40.0); MEAN CELL VOLUME 99.1 fL (80.0-94.0); MEAN CORPUSCULAR HEMOGLOBIN 34.5 pg (27.0-31.0); MEAN CORPUSCULAR HGB CONC 34.8 g/dL (33.0-37.0); MEAN PLATELET VOLUME 7.9 fL (7.2-11.7); MONO # 0.5 K/uL (0.0-0.8); NEUT # 1.8 K/uL (1.8-7.0); NRBC % 0.1 % (0.0-2.0); RBC 3.19 Mil/uL (4.40-5.90); RED CELL DISTRIBUTION WIDTH 15.3 % (11.5-14.5); WHITE BLOOD COUNT 3.4 K/uL (4.8-10.8)
[2017-09-03 08:25] LABS: ALB/GLOB RATIO 1.3 (1.0-2.1); ALBUMIN 3.6 g/dL (3.5-5.0); ALT/SGPT 48 U/L (21-72); AST/SGOT 46 U/L (17-59); BLOOD UREA NITROGEN 22 mg/dL (9-20); CALCIUM 9.1 mg/dl (8.6-10.4); GFR AFRICAN-AMERICAN > 60; GFR NON-AFRICAN AMERICAN > 60
--- NOTE | 2017-09-03 08:50 | PCM.PYCHDC ---
Mental Status Examination - Mental Status Examination Orientation: Person, Place, Situation, Time Memory: Intact Mood: Anxious Affect: Constricted Speech: Appropriate Attention: WNL Concentration: WNL Association: WNL Fund of Knowledge: WNL Formal Thought Process: No Impairment Suicidal Ideation: No Current Homicidal Ideation?: No Discharge Summary - Discharge Note Reason for Hospitalization: Alcohol detox Laboratory Data: Abnormal Lab Results 09/02/17 09/02/17 09/03/17 08:30 08:30 08:02 WBC 3.7 L 3.4 L RBC 3.30 L 3.19 L Hgb 11.4 L 11.0 L Hct 32.7 L 31.6 L MCV 99.2 H 99.1 H MCH 34.7 H 34.5 H MCHC 35.0 34.8 RDW 15.3 H 15.3 H Plt Count 122 L D 157 MPV 7.9 7.9 Neut % (Auto) 51.9 52.0 Lymph % (Auto) 29.5 29.3 [place] % (Auto) 16.2 H 16.0 H Eos % (Auto) 1.9 1.9 Baso % (Auto) 0.5 0.8 Neut # (Auto) 1.9 1.8 Lymph # (Auto) 1.1 1.0 [place] # (Auto) 0.6 0.5 Eos # (Auto) 0.1 0.1 Baso # (Auto) 0.0 0.0 Sodium 139 Potassium 4.8 Chloride 104 Carbon Dioxide 27 Anion Gap 13 BUN 19 Creatinine 0.9 Est GFR ( Amer) > 60 Est GFR (Non-Af Amer) > 60 Random Glucose 97 Calcium 9.2 Total Bilirubin 0.9 AST 53 ALT 53 Alkaline Phosphatase 63 Total Protein 6.3 Albumin 3.6 Globulin 2.7 Albumin/Globulin Ratio 1.3 09/03/17 08:02 WBC RBC Hgb Hct MCV MCH MCHC RDW Plt Count MPV Neut % (Auto) Lymph % (Auto) [place] % (Auto) Eos % (Auto) Baso % (Auto) Neut # (Auto) Lymph # (Auto) [place] # (Auto) Eos # (Auto) Baso # (Auto) Sodium 140 Potassium 4.6 Chloride 105 Carbon Dioxide 25 Anion Gap 14 BUN 22 H Creatinine 0.9 Est GFR ( Amer) > 60 Est GFR (Non-Af Amer) > 60 Random Glucose 98 Calcium 9.1 Total Bilirubin 0.9 AST 46 ALT 48 Alkaline Phosphatase 58 Total Protein 6.3 Albumin 3.6 Globulin 2.7 Albumin/Globulin Ratio 1.3 Consultations:: List each consultation separately and include: 1. Reason for request. 2. Findings. 3. Follow-up Summary of Hospital Course include:: 1. Description of specific treatment plan utilized for patients during their course of treatmen. 2. Summarize the time- course for resolution of acute symptoms and/or regressed behaviors. 3. Describe issues identified and worked on during hospitalization. 4. Describe medication utilized. 5. Describe medical problems identified and treated. 6. Reassessment of suicide risk Summary of Hospital Course: The patient is seen, chart reviewed and case discussed. On admission: This is a 51-year-old male, with 2 children, both adults, lives with his , employed. The patient is using 2 pints of liquor every day and reports significant withdrawal symptoms. He has a long history of alcohol use and complications, but he also used on and off over the years and he finally relapsed 2 years ago. He denies drug use He has mild depressive symptoms He was also admitted to medicine on his first day because of significant withdrawal symptoms as well as low platelets. Past psych history: He was treated for depression years ago. Family psych history: Brother of drug and alcohol use. Father had alcohol dependence but clean. Medical history: He had conquered cancer and low platelets. Hospital course: The pt was admitted and started on treatment with psychotherapy, support, psychoeducation and medications. NM and CBT used. The pt attended groups and activities, as well as milieu therapy. All the risks and benefits of medications are discussed and the patient understood and agreed. The pt improved with the treatments provided. After care discussed with the patient. He applied to [facility] but ended up going to [facility] - Final Diagnosis (DSM 5) Condition upon Discharge: STABLE DSM 5: Alcohol withdrawal with complication Alcohol use disorder, severe Depressive disorder unspecified Disposition: HOME/ ROUTINE Follow-up Treatment Plan: Continue below medications after discharge. Follow after care plan as discussed. Use relapse prevention skills Return to ER or call 911 if suicidal, homicidal or symptoms relapse. Stay away from stress, alcohol and drugs. See primary doctor regularly and get labs. Prescriptions/Medication Reconciliation: Escitalopram [Lexapro] 10 mg PO DAILY #30 tab Gabapentin [Neurontin] 300 mg PO TID #90 cap Naltrexone [Revia] 50 mg PO DAILY #30 tab Pantoprazole [Protonix EC Tab] 40 mg PO DAILY #30 ect traZODone [Desyrel] 100 mg PO HS PRN #30 tab PRN Reason: Insomnia - Smoking Cessation Smoking Cessation Medication prescribed: No - Antipsychotic Medications Pt discharged on 2 or more routine antipsychotic medications: No
[2017-09-03 08:51] VITALS: BP 114/73; PULSE 79; TEMP 97.6
[2017-09-03] MEDS: Pantoprazole 40 mg EC Tab PO SCH (09:51)
[2017-09-03] MEDS: Multiple Vitamins Tab PO SCH (09:52)
== END 2017-09-03 13:19 | disposition home or self-care (01) | DRG 881 ==
LOC: C.ER 14:04 → C.9E 19:23 → C.5S 20:36 → C.7D 08-30 12:05
PROVIDERS: ADMIT Psychiatry & Neurology Psychiatry; ATTEND Psychiatry & Neurology Psychiatry
PROC: HZ2ZZZZ Detoxification Services for Substance Abuse Treatment (ICD-10-PCS; principal; 2017-08-29)
DX: F32.9 Major depressive disorder, single episode, unspecified (principal); F10.230 Alcohol dependence with withdrawal, uncomplicated; F41.9 Anxiety disorder, unspecified; R56.9 Unspecified convulsions; Z85.819 Personal history of malignant neoplasm of unspecified site of lip, oral cavity, and pharynx; F17.210 Nicotine dependence, cigarettes, uncomplicated; F19.10 Other psychoactive substance abuse, uncomplicated; Y90.0 Blood alcohol level of less than 20 mg/100 ml; D69.6 Thrombocytopenia, unspecified

== ENCOUNTER 2018-02-07 16:44 | Inpatient (IN) | payer BC ==
--- NOTE | 2018-02-07 16:57 | C.PDOC ---
History Of Present Illness 52 yr old male w/ hx of throat CA w/ chemo and resection, etoh abuse, previous G tube, presents for detox request. Pt also notes that he pulled his own g tube 2 weeks prior and has not been feeding himself via g-tube since then. He notes that he has been eating protein shakes, but over the past two weeks had increased weight loss due to taking out his g-tube. He notes a hx of etoh withdrawal seizure but no active withdrawal symptoms now. No chest pain or sob. No abdominal pain. No fever, chills or night sweats. No neck stiffness. No SI or HI. No other complaints. PMD: Dr. Chamberlain Time Seen by Provider: 02/07/18 16:57 Chief Complaint (Nursing): Psychiatric Evaluation Past Medical History Vital Signs: Last Vital Signs Temp 98.4 F 02/07/18 16:49 Pulse 114 H 02/07/18 16:49 Resp 19 02/07/18 16:49 BP 132/91 H 02/07/18 16:49 Pulse Ox 100 02/07/18 16:49 - Medical History PMH: Denies: Diabetes, Hepatitis, HIV, HTN, Chronic Kidney Disease, Seizures, Sexually Transmitted Disease Surgical History: Cholecystectomy - [facility] FOR SUBSTANCE ABUSE TREATMENT (08/29/17) Family History: States: Unknown Family Hx - Social History Hx Alcohol Use: Yes Hx Substance Use: No - Immunization History Hx Tetanus Toxoid Vaccination: No Hx Influenza Vaccination: No Hx Pneumococcal Vaccination: No Review Of Systems Constitutional: Positive for: Weight loss. Negative for: Fever, Chills, Sweats Eyes: Negative for: Pain, Vision Change ENT: Negative for: Ear Pain Cardiovascular: Negative for: Chest Pain, Palpitations Respiratory: Negative for: Cough, Shortness of Breath, SOB with Excertion, Pleuritic Pain Gastrointestinal: Negative for: Nausea, Vomiting, Abdominal Pain, Constipation, Melena Genitourinary: Negative for: Dysuria, Frequency, Hematuria, Penile Discharge Musculoskeletal: Negative for: Neck Pain, Back Pain Skin: Negative for: Rash, Lesions Neurological: Negative for: Weakness, Numbness, Confusion, Seizures Psych: Negative for: Anxiety Physical Exam - Physical Exam Appears: Well, Non-toxic, No Acute Distress Skin: Normal Color, Warm Head: Atraumatic Eye(s): bilateral: Normal Inspection, PERRL, EOMI Ear(s): Bilateral: Normal Nose: Normal Oral Mucosa: Moist Tongue: Normal Appearing Lips: Normal Appearing Gingiva: Normal Appearing Throat: Normal, No Erythema, No Exudate Neck: Normal ROM, Trachea Midline, No Midline Cervical Tenderness, No Paracervical Tenderness, Supple, Other (no meningeal signs. L neck along lateral surface, surgical scar, well healed. no erythema, crepitus or induration/fluctuance) Chest: Symmetrical, No Deformity Cardiovascular: Rhythm Regular Respiratory: Normal Breath Sounds, No Accessory Muscle Use, No Rales, No Rhonchi, No Stridor, No Wheezing, No Plerual Rub Gastrointestinal/Abdominal: Soft, No Tenderness, No Mass, No Distention, No Guarding, No Rebound, No Hernia, No Ascites, Other (G tube site closed. non-ttp, no crepitus or erythema) Back: Normal Inspection, No CVA Tenderness Extremity: Normal ROM, No Tenderness Neurological/Psych: Oriented x3, Normal Speech, Normal Cognition, Normal Cranial Nerves, No Cerebellar Signs, Normal Motor Gait: Steady Other Neurological Findings: Other (no tongue fasciulations or tremors in hands) ED Course And Treatment - Laboratory Results Result Diagrams: 02/07/18 17:42 02/07/18 17:42 O2 Sat by Pulse Oximetry: 100 Medical Decision Making Medical Decision Makin yr old male w/ hx of throat ca, etoh abuse, etoh withdrawal p/w req for detox and decreased po intake. Notes pulling out his own g tube 2 weeks prior and losing more weight. No signs of withdrawal on exam other than tachy but pt notes he has not drank much water today. Last etoh use was this AM. No meningeal signs. Well healing g tube site. No detox beds available: will consult crisis to see Given decreased PO intake however and hx of gtube removal w/ throat CA; will check labs and seek probably obs for FTT. Pending labs 1821 etoh level 200+, liver enzymes moderately elevated w/ out ruq pain. AST > ALT elevation c/w alcohol causation. labs otherwise largely unremarkable Given FTT- decreased PO intake, removal of g-tube, hx of concimnant throat will consult Medicine continuous washer operator for obs Benito Moeller (medicine web content manager) 1829 EK, NSR. No stemi no indiction of withdrawal at this time: remains w/ out tremors and w/ out fasciculation. appreciate consult w/ Dr. Moeller: to admit to his service. pt and family agreeable. Disposition - Disposition Disposition Time: 18:31 Condition: GOOD Forms: [facility] ([place]) - Clinical Impression Clinical Impression: FTT (failure to thrive) in adult
[2018-02-07] MEDS ORDERED: Multivitamin (MVI) 10 ML, Thiamine 100 MG, Folic Acid 1 MG in Sodium Chloride 0.9% 1,00... IV ONE (17:20)
[2018-02-07 17:46] LABS: BASO % 0.5 % (0.0-2.0); EOS % 0.3 % (0.0-4.0); HEMOGLOBIN 12.6 g/dL (12.0-18.0); LYMPH # 1.2 K/uL (1.0-4.3); LYMPH % 18.7 % (20.0-40.0); MEAN CORPUSCULAR HEMOGLOBIN 33.9 pg (27.0-31.0); MEAN CORPUSCULAR HGB CONC 34.5 g/dL (33.0-37.0); MONO # 0.3 K/uL (0.0-0.8); MONO % 4.8 % (0.0-10.0); NEUT # 4.7 K/uL (1.8-7.0); NEUT % 75.7 % (50.0-75.0); NRBC % 0.1 % (0.0-2.0); RBC 3.73 Mil/uL (4.40-5.90); RED CELL DISTRIBUTION WIDTH 14.5 % (11.5-14.5); WHITE BLOOD COUNT 6.2 K/uL (4.8-10.8)
[2018-02-07 17:52] LABS: URINE BILIRUBIN NEGATIVE (NEGATIVE); URINE BLOOD NEGATIVE (NEGATIVE); URINE CLARITY Clear (Clear); URINE COLOR Yellow (YELLOW); URINE GLUCOSE (UA) NORMAL (Normal); URINE HYALINE CAST 0-2 /lpf (0-2); URINE LEUKOCYTE ESTERASE NEG Leu/uL (Negative); URINE PROTEIN NEGATIVE (NEGATIVE); URINE UROBILINOGEN NORMAL mg/dL (0.2-1.0)
[2018-02-07 18:02] LABS: BARBITURATES, UR NEGATIVE (NEGATIVE); BENZODIAZEPINES, UR NEGATIVE (NEGATIVE); OPIATES, UR NEGATIVE (NEGATIVE); PHENCYCLIDINE, UR NEGATIVE (NEGATIVE)
[2018-02-07 18:06] LABS: ALB/GLOB RATIO 1.4 (1.0-2.1); ALBUMIN 4.5 g/dL (3.5-5.0); ALT/SGPT 142 U/L (21-72); AST/SGOT 205 U/L (17-59); BLOOD UREA NITROGEN 17 mg/dL (9-20); CALCIUM 9.6 mg/dl (8.6-10.4); GFR NON-AFRICAN AMERICAN > 60
--- NOTE | 2018-02-07 19:37 | CP.PCM.HP ---
Past Patient History - Infectious Disease Hx of Infectious Diseases: None - Past Medical History & Family History Past Medical History?: Yes - Past Social History Smoking Status: CHEW TOBAC - CARDIAC Hx Hypertension: No - PULMONARY Hx Tuberculosis: No - NEUROLOGICAL Hx Seizures: No - HEENT Hx HEENT Problems: Yes Other/Comment: uses glasses - RENAL Hx Chronic Kidney Disease: No - ENDOCRINE/METABOLIC Hx Endocrine Disorders: No - HEMATOLOGICAL/ONCOLOGICAL Hx Human Immunodeficiency Virus (HIV): No - INTEGUMENTARY Hx Dermatological Problems: No - MUSCULOSKELETAL/RHEUMATOLOGICAL Hx Musculoskeletal Disorders: Yes Hx Falls: Yes (when drinking) Hx Unsteady Gait: Yes - GASTROINTESTINAL Hx Gastrointestinal Disorders: No - GENITOURINARY/GYNECOLOGICAL Hx Sexually Transmitted Disorders: No - PSYCHIATRIC Hx Substance Use: No - SURGICAL HISTORY Hx Cholecystectomy: Yes - ANESTHESIA Hx Anesthesia: Yes Hx Anesthesia Reactions: No Hx Malignant Hyperthermia: No Meds Allergies/Adverse Reactions: Allergies Allergy/AdvReac Type Severity Reaction Status Date / Time No Known Allergies Allergy Verified 02/07/18 16:54 Physical Exam - Constitutional Appears: Well - Head Exam Head Exam: ATRAUMATIC, NORMAL INSPECTION, NORMOCEPHALIC - Eye Exam Eye Exam: EOMI, Normal appearance, PERRL Pupil Exam: NORMAL ACCOMODATION, PERRL - ENT Exam ENT Exam: Mucous Membranes Moist, Normal Exam - Neck Exam Neck exam: Positive for: Normal Inspection - Respiratory Exam Respiratory Exam: Decreased Breath Sounds - Cardiovascular Exam Cardiovascular Exam: REGULAR RHYTHM, +S1, +S2 - GI/Abdominal Exam GI & Abdominal Exam: Diminished Bowel Sounds, Soft - Rectal Exam Rectal Exam: Deferred Results - Vital Signs Recent Vital Signs: Last Vital Signs Temp 98.3 F 02/07/18 19:32 Pulse 98 H 02/07/18 19:32 Resp 18 02/07/18 19:32 BP 124/95 H 02/07/18 19:32 Pulse Ox 100 02/07/18 19:32 - Labs Result Diagrams: 02/07/18 17:42 02/07/18 17:42 Labs: Laboratory Results - last 24 hr 02/07/18 02/07/18 02/07/18 17:42 17:42 17:42 WBC 6.2 D RBC 3.73 L Hgb 12.6 Hct 36.6 MCV 98.0 H MCH 33.9 H MCHC 34.5 RDW 14.5 Plt Count 147 MPV 7.0 L Neut % (Auto) 75.7 H Lymph % (Auto) 18.7 L [place] % (Auto) 4.8 Eos % (Auto) 0.3 Baso % (Auto) 0.5 Neut # (Auto) 4.7 Lymph # (Auto) 1.2 [place] # (Auto) 0.3 Eos # (Auto) 0.0 Baso # (Auto) 0.0 Sodium 139 Potassium 3.8 Chloride 96 L Carbon Dioxide 26 Anion Gap 20 BUN 17 Creatinine 1.0 Est GFR ( Amer) > 60 Est GFR (Non-Af Amer) > 60 Random Glucose 104 Calcium 9.6 Phosphorus 3.1 Magnesium 1.7 Total Bilirubin 0.9 AST 205 H D ALT 142 H D Alkaline Phosphatase 68 Total Protein 7.8 Albumin 4.5 Globulin 3.3 Albumin/Globulin Ratio 1.4 Urine Color Yellow Urine Clarity Clear Urine pH 6.0 Ur Specific [place] 1.009 Urine Protein Negative Urine Glucose (UA) Normal Urine Ketones Negative Urine Blood Negative Urine Nitrate Negative Urine Bilirubin Negative Urine Urobilinogen Normal Ur Leukocyte Esterase Neg Urine WBC (Auto) 1 Urine RBC (Auto) 1 Hyaline Casts 0-2 Urine Opiates Screen Urine Methadone Screen Ur Barbiturates Screen Ur Phencyclidine Scrn Ur Amphetamines Screen U Benzodiazepines Scrn U Oth Cocaine Metabols U Cannabinoids Screen Alcohol, Quantitative 224 H 02/07/18 17:42 WBC RBC Hgb Hct MCV MCH MCHC RDW Plt Count MPV Neut % (Auto) Lymph % (Auto) [place] % (Auto) Eos % (Auto) Baso % (Auto) Neut # (Auto) Lymph # (Auto) [place] # (Auto) Eos # (Auto) Baso # (Auto) Sodium Potassium Chloride Carbon Dioxide Anion Gap BUN Creatinine Est GFR ( Amer) Est GFR (Non-Af Amer) Random Glucose Calcium Phosphorus Magnesium Total Bilirubin AST ALT Alkaline Phosphatase Total Protein Albumin Globulin Albumin/Globulin Ratio Urine Color Urine Clarity Urine pH Ur Specific [place] Urine Protein Urine Glucose (UA) Urine Ketones Urine Blood Urine Nitrate Urine Bilirubin Urine Urobilinogen Ur Leukocyte Esterase Urine WBC (Auto) Urine RBC (Auto) Hyaline Casts Urine Opiates Screen Negative Urine Methadone Screen Negative Ur Barbiturates Screen Negative Ur Phencyclidine Scrn Negative Ur Amphetamines Screen Negative U Benzodiazepines Scrn Negative U Oth Cocaine Metabols Negative U Cannabinoids Screen Negative Alcohol, Quantitative
--- NOTE | 2018-02-08 07:56 | CP.PCM.CON ---
<AgbrieNate - Last Filed: 02/08/18 09:06> History of Present Illness - History of Present Illness History of Present Illness: GI Fellow PGY4, Consult note. 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 Patient had PEG tube placed June 2017 at [facility]. Unfortunately, patient has been having depression, stopped taking de pression medication and recently and started drinking alcohol regularly the last 3 weeks. 2 weeks ago, patient accidentally removed PEG tube and did not seek medical attention at that time. He states he has had 20lb weight loss in the last month. He states he has no problems eating food including eggs, toast. Denies dysphagia or food getting stuck. He says he is due for PET scan to see if there is any remaining cancer. He denies abdominal pain, vomiting, blood in stool. He denies blood thinners. PMHx - As above PSHx - Cholecystectomy FMHx - No GI cancers SocHx - Alcohol abuse, non-smoker. 12pt ROS completed and negative except for above. Past Patient History - Infectious Disease Hx of Infectious Diseases: None - Past Medical History & Family History Past Medical History?: Yes - Past Social History Smoking Status: CHEW TOBAC - CARDIAC Hx Hypertension: No - PULMONARY Hx Tuberculosis: No - NEUROLOGICAL Hx Seizures: No - HEENT Hx HEENT Problems: Yes Other/Comment: uses glasses - RENAL Hx Chronic Kidney Disease: No - ENDOCRINE/METABOLIC Hx Endocrine Disorders: No - HEMATOLOGICAL/ONCOLOGICAL Hx Human Immunodeficiency Virus (HIV): No - INTEGUMENTARY Hx Dermatological Problems: No - MUSCULOSKELETAL/RHEUMATOLOGICAL Hx Musculoskeletal Disorders: Yes Hx Falls: Yes (when drinking) Hx Unsteady Gait: Yes - GASTROINTESTINAL Hx Gastrointestinal Disorders: No - GENITOURINARY/GYNECOLOGICAL Hx Sexually Transmitted Disorders: No - PSYCHIATRIC Hx Substance Use: No - SURGICAL HISTORY Hx Cholecystectomy: Yes - ANESTHESIA Hx Anesthesia: Yes Hx Anesthesia Reactions: No Hx Malignant Hyperthermia: No Meds Allergies/Adverse Reactions: Allergies Allergy/AdvReac Type Severity Reaction Status Date / Time No Known Allergies Allergy Verified 02/07/18 16:54 - Medications Medications: Current Medications Chlordiazepoxide (Librium) 25 mg PO Q8 PRN PRN Reason: Restlessness Last Admin: 02/08/18 06:49 Dose: 25 mg Enoxaparin Sodium (Lovenox) 40 mg SC DAILY [facility] Folic Acid 1 mg/ Thiamine HCl 100 mg/ Multivitamins/Vitamin C 10 ml/ Dextrose 1,011.2 mls @ 75 mls/hr IV Q24H [facility] Influenza Virus Vaccine (Fluzone Quad [id number]) 60 mcg IM .ONCE ONE Stop: 02/09/18 10:01 Pantoprazole Sodium (Protonix Inj) 40 mg IVP DAILY [facility] Pneumococcal Polyvalent Vaccine (Pneumovax 23 Vaccine) 0.5 ml IM .ONCE ONE Stop: 02/09/18 10:01 Physical Exam - Constitutional Appears: Non-toxic, No Acute Distress, Chronically Ill - Eye Exam Eye Exam: EOMI, Normal appearance - ENT Exam ENT Exam: Mucous Membranes Moist, Normal Exam - Respiratory Exam Respiratory Exam: Clear to Auscultation Bilateral, NORMAL BREATHING PATTERN - Cardiovascular Exam Cardiovascular Exam: REGULAR RHYTHM, +S1, +S2 - GI/Abdominal Exam GI & Abdominal Exam: Normal Bowel Sounds, Soft. absent: Organomegaly, Tenderness Additional comments: Well healed PEG tube site. - Extremities Exam Extremities exam: Positive for: normal inspection - Neurological Exam Neurological exam: Alert, CN II-XII Intact, Oriented x3 - Psychiatric Exam Psychiatric exam: Normal Affect, Normal Mood - Skin Skin Exam: Dry, Normal Color Results - Vital Signs Recent Vital Signs: Last Vital Signs Temp 98.5 F 02/08/18 00:00 Pulse 96 H 02/08/18 00:00 Resp 20 02/08/18 00:00 BP 108/70 02/08/18 00:00 Pulse Ox 97 02/08/18 00:00 - Labs Result Diagrams: 02/07/18 17:42 02/07/18 17:42 Labs: Laboratory Results - last 24 hr 02/07/18 02/07/18 02/07/18 17:42 17:42 17:42 WBC 6.2 D RBC 3.73 L Hgb 12.6 Hct 36.6 MCV 98.0 H MCH 33.9 H MCHC 34.5 RDW 14.5 Plt Count 147 MPV 7.0 L Neut % (Auto) 75.7 H Lymph % (Auto) 18.7 L [place] % (Auto) 4.8 Eos % (Auto) 0.3 Baso % (Auto) 0.5 Neut # (Auto) 4.7 Lymph # (Auto) 1.2 [place] # (Auto) 0.3 Eos # (Auto) 0.0 Baso # (Auto) 0.0 Sodium 139 Potassium 3.8 Chloride 96 L Carbon Dioxide 26 Anion Gap 20 BUN 17 Creatinine 1.0 Est GFR ( Amer) > 60 Est GFR (Non-Af Amer) > 60 Random Glucose 104 Calcium 9.6 Phosphorus 3.1 Magnesium 1.7 Total Bilirubin 0.9 AST 205 H D ALT 142 H D Alkaline Phosphatase 68 Total Protein 7.8 Albumin 4.5 Globulin 3.3 Albumin/Globulin Ratio 1.4 Urine Color Yellow Urine Clarity Clear Urine pH 6.0 Ur Specific [place] 1.009 Urine Protein Negative Urine Glucose (UA) Normal Urine Ketones Negative Urine Blood Negative Urine Nitrate Negative Urine Bilirubin Negative Urine Urobilinogen Normal Ur Leukocyte Esterase Neg Urine WBC (Auto) 1 Urine RBC (Auto) 1 Hyaline Casts 0-2 Urine Opiates Screen Urine Methadone Screen Ur Barbiturates Screen Ur Phencyclidine Scrn Ur Amphetamines Screen U Benzodiazepines Scrn U Oth Cocaine Metabols U Cannabinoids Screen Alcohol, Quantitative 224 H 02/07/18 17:42 WBC RBC Hgb Hct MCV MCH MCHC RDW Plt Count MPV Neut % (Auto) Lymph % (Auto) [place] % (Auto) Eos % (Auto) Baso % (Auto) Neut # (Auto) Lymph # (Auto) [place] # (Auto) Eos # (Auto) Baso # (Auto) Sodium Potassium Chloride Carbon Dioxide Anion Gap BUN Creatinine Est GFR ( Amer) Est GFR (Non-Af Amer) Random Glucose Calcium Phosphorus Magnesium Total Bilirubin AST ALT Alkaline Phosphatase Total Protein Albumin Globulin Albumin/Globulin Ratio Urine Color Urine Clarity Urine pH Ur Specific [place] Urine Protein Urine Glucose (UA) Urine Ketones Urine Blood Urine Nitrate Urine Bilirubin Urine Urobilinogen Ur Leukocyte Esterase Urine WBC (Auto) Urine RBC (Auto) Hyaline Casts Urine Opiates Screen Negative Urine Methadone Screen Negative Ur Barbiturates Screen Negative Ur Phencyclidine Scrn Negative Ur Amphetamines Screen Negative U Benzodiazepines Scrn Negative U Oth Cocaine Metabols Negative U Cannabinoids Screen Negative Alcohol, Quantitative Assessment & Plan - Assessment and Plan (Free Text) Assessment: #PEG tube dislodgment #Weight loss #Depression #Alcohol abuse #Throat cancer s/p resection, chemoradiation 05/2017 PLAN: -Patient self removed PEG tube 2 weeks ago -Patient states he is able to eat food without problems. No dysphagia. He thinks he is losing weight because he is depressed, and no appetite, only drinking alco hol. -Recommend psych evaluation. -We will give a trial of full liquid diet and advance to regular diet if tolerating. If he can tolerate regular diet, we would not recommend PEG tube replacement at this time. -Patient needs regular follow up with PCP. -Recommend CIWA, thiamine, folate supplements -Recommend protein supplement drinks - Date & Time Date: 02/08/18 Time: 09:14 <Jarett Solo - Last Filed: 02/09/18 12:14> Meds - Medications Medications: Current Medications Clonidine HCl (Catapres) 0.1 mg PO Q4H PRN PRN Reason: Symptoms of alcohol withdrawl Enoxaparin Sodium (Lovenox) 40 mg SC DAILY [facility] Escitalopram Oxalate (Lexapro) 5 mg PO DAILY [facility] Last Admin: 02/09/18 09:49 Dose: 5 mg Folic Acid 1 mg/ Thiamine HCl 100 mg/ Multivitamins/Vitamin C 10 ml/ Dextrose 1,011.2 mls @ 75 mls/hr IV Q24H [facility] Last Admin: 02/08/18 17:49 Dose: 75 mls/hr Lorazepam (Ativan) 1 mg IVP Q4H PRN PRN Reason: CIWA>15 ETOH withdrawal Lorazepam (Ativan) 1 mg PO Q6H [facility]; Taper Stop: 02/13/18 12:14 Last Admin: 02/09/18 11:39 Dose: 1 mg Naltrexone HCl (Revia) 50 mg PO DAILY [facility] Last Admin: 02/09/18 09:49 Dose: 50 mg Pantoprazole Sodium (Protonix Inj) 40 mg IVP DAILY [facility] Last Admin: 02/09/18 09:47 Dose: 40 mg Thiamine HCl (Vitamin B1 Tab) 100 mg PO DAILY [facility] Last Admin: 02/09/18 09:47 Dose: 100 mg Trazodone HCl (Desyrel) 100 mg PO HS PRN PRN Reason: Insomnia Last Admin: 02/09/18 09:49 Dose: 100 mg Results - Vital Signs Recent Vital Signs: Last Vital Signs Temp 98.1 F 02/09/18 07:38 Pulse 90 02/09/18 07:38 Resp 20 02/09/18 07:38 BP 123/82 02/09/18 07:38 Pulse Ox 99 02/09/18 07:38 - Labs Result Diagrams: 02/07/18 17:42 02/07/18 17:42 Attending/Attestation - Attestation I have personally seen and examined this patient.: Yes I have fully participated in the care of the patient.: Yes I have reviewed all pertinent clinical information: Yes Notes (Text): 02/09/18 12:13 The pt was seen and examined. History reviewed. Assessment and recommendations as above.
[2018-02-08] MEDS ORDERED: Enoxaparin 40 mg Syringe SC SCH (10:00)
[2018-02-08 11:45] LABS: PROTHROMBIN TIME 10.9 SECONDS (9.7-12.2)
--- NOTE | 2018-02-08 12:05 | PCM.PSYCH ---
Initial Psychiatric Evaluation - Initial Psychiatric Evaluation Type of Admission: Voluntary Legal Status: Capacity Chief Complaint (in patient's own words): "I relapsed" History of Present Illness and Precipitating Events: The patient is seen, chart reviewed and case discussed. He is known from a detox admission. Consult was requested for his alcohol withdrawal This is a 52-year-old male, with 2 children, both adults, lives with his , employed. The patient is drinking 1 pint of liquor every day and reports withdrawal symptoms. He has a long history of alcohol use and complications, but he also used on and off over the years and he finally relapsed 2 years ago before last detox with us. He says [facility] and they made him stop his naltrexone and effexor and he relapsed. That was about 2 weeks ago he says. Since then he was on a daily binge. He denies drug use He has depressive symptoms Past psych history: He was treated for depression years ago and also this year. Wants to resume lexapro Family psych history: Brother of drug and alcohol use. Father had alcohol dependence but clean. Medical history: He had tongue cancer and low platelets. He was given an NG tube but he pulled it out due to alcoholism, and he has lost significant weight since then. Current Medications: Active Medications Generic Name Dose Route Start Last Admin Trade Name Freq PRN Reason Stop Dose Admin Enoxaparin Sodium 40 mg 02/08/18 10:00 Lovenox SC DAILY [facility] Folic Acid 1 mg/ Thiamine HCl 1,011.2 mls @ 75 mls/hr 02/08/18 18:00 100 mg/ Multivitamins/Vitamin IV C 10 ml/ Dextrose Q24H [facility] Influenza Virus Vaccine 60 mcg 02/09/18 10:00 Fluzone Quad [id number] IM 02/09/18 10:01 .ONCE ONE Lorazepam 1 mg 02/08/18 08:45 Ativan IVP Q4H PRN CIWA>15 ETOH withdrawal Pantoprazole Sodium 40 mg 02/08/18 10:00 02/08/18 09:40 Protonix Inj IVP 40 mg DAILY [facility] Administration Pneumococcal Polyvalent Vaccine 0.5 ml 02/09/18 10:00 Pneumovax 23 Vaccine IM 02/09/18 10:01 .ONCE ONE Past Psychiatric History - Past Psychiatric History Previous Treatment History: Intensive Outpatient Pertinent Medical Hx (Current Medical&Sleep Prob, Allergies): Allergies Allergy/AdvReac Type Severity Reaction Status Date / Time No Known Allergies Allergy Verified 02/07/18 16:54 Gabapentin [Neurontin] 600 mg PO TID 02/07/18 Review of Systems - Psychiatric Psychiatric: Abnormal Sleep Pattern, Anhedonia, Anxiety, Change in Appetite, Depression, Difficulty Concentrating. absent: Hallucinations, Homicidal Ideation, Paranoia, Suicidal Ideation Mental Status Examination - Personal Presentation Personal Presentation: Looks stated age - Affect Affect: Constricted - Motor Activity Motor Activity: Calm - Reliability in Providing Information Reliability in Providing Information: Good - Speech Speech: Organized - Mood Mood: Depressed, Anxious - Formal Thought Process Formal Thought Process: No Impairment - Cognitive Functions Orientation: Person, Place, Situation, Time Sensorium: Alert Attention/Concentration: Attentive Estimate of Intelligence: Average Judgement: Intact, as evidence by: Insight regarding need for hospitalization Memory: Recent intact, as evidence by: Ability to recall events of the day, Gilles te intact, as evidenced by: Abilit to recall sig. life events - Risk Risk: Withdrawal, Diminished functioning - Strength & Assets Inventory Strength & Assets Inventory: Family support, Cooperative - Limitations Limitations: Other DSM 5 DX - DSM 5 DSM 5 Diagnosis: Alcohol withdrawal with complication Alcohol use disorder, severe Major depressive d/o - recurrent, severe, w/o psychosis Tongue cancer - Recommended/Plan of Treatment Treatment Recommendations and Plan of Treatment: Taper with Librium Gabapentin for augmentation Lexapro for depression As needed medications All risks, benefits and alternatives of the meds discussed, and the pt agreed and understood. No medications for depression for now but CBT and support Attend groups and activities Supportive therapy and psychoeducation GA for abstinence CBT for relapse prevention Encourage MAT Refer to rehab or IOP, and self-help groups Smoking cessation with GA Nicotine patch if needed Transfer to detox when medically cleared. CALL [employer] FIRST 34 min
[2018-02-08] MEDS ORDERED: Naltrexone 25 MG TAB PO SCH (12:15)
--- NOTE | 2018-02-08 17:05 | CP.PCM.CON ---
History of Present Illness - History of Present Illness History of Present Illness: Neurology Consultation Note: Mr. Han is a 52-year-old man with a past medical history of throat cancer, s/p chemoradiation and PEG tube placement. The PEG tube was recently accidentally removed by him and there has been a subsequent weight loss. He also resumed drinking alcohol again and states that he sometimes has withdrawal seizures. No recent seizures reported. Neurology was consulted to assist with the management and care. Review of Systems - Review of Systems All systems: reviewed and no additional remarkable complaints except Past Patient History - Infectious Disease Hx of Infectious Diseases: None - Past Medical History & Family History Past Medical History?: Yes - Past Social History Smoking Status: CHEW TOBAC - CARDIAC Hx Hypertension: No - PULMONARY Hx Tuberculosis: No - NEUROLOGICAL Hx Seizures: No - HEENT Hx HEENT Problems: Yes Other/Comment: uses glasses - RENAL Hx Chronic Kidney Disease: No - ENDOCRINE/METABOLIC Hx Endocrine Disorders: No - HEMATOLOGICAL/ONCOLOGICAL Hx Human Immunodeficiency Virus (HIV): No - INTEGUMENTARY Hx Dermatological Problems: No - MUSCULOSKELETAL/RHEUMATOLOGICAL Hx Musculoskeletal Disorders: Yes Hx Falls: Yes (when drinking) Hx Unsteady Gait: Yes - GASTROINTESTINAL Hx Gastrointestinal Disorders: No - GENITOURINARY/GYNECOLOGICAL Hx Sexually Transmitted Disorders: No - PSYCHIATRIC Hx Substance Use: No - SURGICAL HISTORY Hx Cholecystectomy: Yes - ANESTHESIA Hx Anesthesia: Yes Hx Anesthesia Reactions: No Hx Malignant Hyperthermia: No Meds Allergies/Adverse Reactions: Allergies Allergy/AdvReac Type Severity Reaction Status Date / Time No Known Allergies Allergy Verified 02/07/18 16:54 - Medications Medications: Current Medications Clonidine HCl (Catapres) 0.1 mg PO Q4H PRN PRN Reason: Symptoms of alcohol withdrawl Enoxaparin Sodium (Lovenox) 40 mg SC DAILY [facility] Escitalopram Oxalate (Lexapro) 5 mg PO DAILY [facility] Last Admin: 02/08/18 12:53 Dose: 5 mg Folic Acid 1 mg/ Thiamine HCl 100 mg/ Multivitamins/Vitamin C 10 ml/ Dextrose 1,011.2 mls @ 75 mls/hr IV Q24H [facility] Influenza Virus Vaccine (Fluzone Quad [id number]) 60 mcg IM .ONCE ONE Stop: 02/09/18 10:01 Lorazepam (Ativan) 1 mg IVP Q4H PRN PRN Reason: CIWA>15 ETOH withdrawal Lorazepam (Ativan) 1 mg PO Q6H [facility]; Taper Stop: 02/13/18 12:14 Last Admin: 02/08/18 12:52 Dose: 1 mg Naltrexone HCl (Revia) 50 mg PO DAILY [facility] Last Admin: 02/08/18 13:01 Dose: 50 mg Pantoprazole Sodium (Protonix Inj) 40 mg IVP DAILY [facility] Last Admin: 02/08/18 09:40 Dose: 40 mg Pneumococcal Polyvalent Vaccine (Pneumovax 23 Vaccine) 0.5 ml IM .ONCE ONE Stop: 02/09/18 10:01 Thiamine HCl (Vitamin B1 Tab) 100 mg PO DAILY [facility] Last Admin: 02/08/18 12:53 Dose: 100 mg Trazodone HCl (Desyrel) 100 mg PO HS PRN PRN Reason: Insomnia Physical Exam - Constitutional Appears: Well - Head Exam Head Exam: ATRAUMATIC, NORMAL INSPECTION, NORMOCEPHALIC - Eye Exam Eye Exam: EOMI, Normal appearance, PERRL Pupil Exam: NORMAL ACCOMODATION, PERRL - ENT Exam ENT Exam: Mucous Membranes Moist, Normal Exam - Neck Exam Neck exam: Positive for: Normal Inspection - Respiratory Exam Respiratory Exam: Clear to Auscultation Bilateral, NORMAL BREATHING PATTERN - Cardiovascular Exam Cardiovascular Exam: REGULAR RHYTHM, +S1, +S2 - GI/Abdominal Exam GI & Abdominal Exam: Normal Bowel Sounds, Soft. absent: Tenderness - Rectal Exam Rectal Exam: Deferred - Extremities Exam Extremities exam: Positive for: normal inspection - Back Exam Back exam: NORMAL INSPECTION - Neurological Exam Neurological exam: Alert, CN II-XII Intact, Normal Gait, Oriented x3, Reflexes Normal - Psychiatric Exam Psychiatric exam: Normal Affect, Normal Mood - Skin Skin Exam: Dry, Intact, Normal Color, Warm Results - Vital Signs Recent Vital Signs: Last Vital Signs Temp 97.6 F 02/08/18 08:34 Pulse 97 H 02/08/18 08:34 Resp 20 02/08/18 08:34 BP 137/78 02/08/18 08:34 Pulse Ox 97 02/08/18 12:00 - Labs Result Diagrams: 02/07/18 17:42 02/07/18 17:42 Labs: Laboratory Results - last 24 hr 02/07/18 02/07/18 02/07/18 17:42 17:42 17:42 WBC 6.2 D RBC 3.73 L Hgb 12.6 Hct 36.6 MCV 98.0 H MCH 33.9 H MCHC 34.5 RDW 14.5 Plt Count 147 MPV 7.0 L Neut % (Auto) 75.7 H Lymph % (Auto) 18.7 L [place] % (Auto) 4.8 Eos % (Auto) 0.3 Baso % (Auto) 0.5 Neut # (Auto) 4.7 Lymph # (Auto) 1.2 [place] # (Auto) 0.3 Eos # (Auto) 0.0 Baso # (Auto) 0.0 PT INR APTT Sodium 139 Potassium 3.8 Chloride 96 L Carbon Dioxide 26 Anion Gap 20 BUN 17 Creatinine 1.0 Est GFR ( Amer) > 60 Est GFR (Non-Af Amer) > 60 Random Glucose 104 Calcium 9.6 Phosphorus 3.1 Magnesium 1.7 Total Bilirubin 0.9 AST 205 H D ALT 142 H D Alkaline Phosphatase 68 Total Protein 7.8 Albumin 4.5 Globulin 3.3 Albumin/Globulin Ratio 1.4 Urine Color Yellow Urine Clarity Clear Urine pH 6.0 Ur Specific [place] 1.009 Urine Protein Negative Urine Glucose (UA) Normal Urine Ketones Negative Urine Blood Negative Urine Nitrate Negative Urine Bilirubin Negative Urine Urobilinogen Normal Ur Leukocyte Esterase Neg Urine WBC (Auto) 1 Urine RBC (Auto) 1 Hyaline Casts 0-2 Urine Opiates Screen Urine Methadone Screen Ur Barbiturates Screen Ur Phencyclidine Scrn Ur Amphetamines Screen U Benzodiazepines Scrn U Oth Cocaine Metabols U Cannabinoids Screen Alcohol, Quantitative 224 H 02/07/18 02/08/18 17:42 11:18 WBC RBC Hgb Hct MCV MCH MCHC RDW Plt Count MPV Neut % (Auto) Lymph % (Auto) [place] % (Auto) Eos % (Auto) Baso % (Auto) Neut # (Auto) Lymph # (Auto) [place] # (Auto) Eos # (Auto) Baso # (Auto) PT 10.9 INR 1.0 APTT 30 Sodium Potassium Chloride Carbon Dioxide Anion Gap BUN Creatinine Est GFR ( Amer) Est GFR (Non-Af Amer) Random Glucose Calcium Phosphorus Magnesium Total Bilirubin AST ALT Alkaline Phosphatase Total Protein Albumin Globulin Albumin/Globulin Ratio Urine Color Urine Clarity Urine pH Ur Specific [place] Urine Protein Urine Glucose (UA) Urine Ketones Urine Blood Urine Nitrate Urine Bilirubin Urine Urobilinogen Ur Leukocyte Esterase Urine WBC (Auto) Urine RBC (Auto) Hyaline Casts Urine Opiates Screen Negative Urine Methadone Screen Negative Ur Barbiturates Screen Negative Ur Phencyclidine Scrn Negative Ur Amphetamines Screen Negative U Benzodiazepines Scrn Negative U Oth Cocaine Metabols Negative U Cannabinoids Screen Negative Alcohol, Quantitative Assessment & Plan (1) History of seizure Assessment and Plan: This is not an active problem. Please ensure the patient is under CIWA protocol Thank you. Status: Chronic
--- NOTE | 2018-02-08 17:20 | CP.PCM.PN ---
Subjective - Date & Time of Evaluation Date of Evaluation: 02/08/18 Time of Evaluation: 08:30 - Subjective Subjective: clinically same Objective - Vital Signs/Intake and Output Vital Signs (last 24 hours): Temp Pulse Resp BP Pulse Ox 98.8 F 89 20 111/74 98 02/08/18 16:00 02/08/18 16:00 02/08/18 16:00 02/08/18 16:00 02/08/18 16:00 - Medications Medications: Current Medications Clonidine HCl (Catapres) 0.1 mg PO Q4H PRN PRN Reason: Symptoms of alcohol withdrawl Enoxaparin Sodium (Lovenox) 40 mg SC DAILY [facility] Escitalopram Oxalate (Lexapro) 5 mg PO DAILY [facility] Last Admin: 02/08/18 12:53 Dose: 5 mg Folic Acid 1 mg/ Thiamine HCl 100 mg/ Multivitamins/Vitamin C 10 ml/ Dextrose 1,011.2 mls @ 75 mls/hr IV Q24H [facility] Influenza Virus Vaccine (Fluzone Quad [id number]) 60 mcg IM .ONCE ONE Stop: 02/09/18 10:01 Lorazepam (Ativan) 1 mg IVP Q4H PRN PRN Reason: CIWA>15 ETOH withdrawal Lorazepam (Ativan) 1 mg PO Q6H [facility]; Taper Stop: 02/13/18 12:14 Last Admin: 02/08/18 12:52 Dose: 1 mg Naltrexone HCl (Revia) 50 mg PO DAILY [facility] Last Admin: 02/08/18 13:01 Dose: 50 mg Pantoprazole Sodium (Protonix Inj) 40 mg IVP DAILY [facility] Last Admin: 02/08/18 09:40 Dose: 40 mg Pneumococcal Polyvalent Vaccine (Pneumovax 23 Vaccine) 0.5 ml IM .ONCE ONE Stop: 02/09/18 10:01 Thiamine HCl (Vitamin B1 Tab) 100 mg PO DAILY [facility] Last Admin: 02/08/18 12:53 Dose: 100 mg Trazodone HCl (Desyrel) 100 mg PO HS PRN PRN Reason: Insomnia - Labs Labs: 02/07/18 17:42 02/07/18 17:42 PT 10.9 SECONDS (9.7-12.2) 02/08/18 11:18 INR 1.0 02/08/18 11:18 APTT 30 SECONDS (21-34) 02/08/18 11:18 - Constitutional Appears: Well - Head Exam Head Exam: ATRAUMATIC, NORMAL INSPECTION, NORMOCEPHALIC - Eye Exam Eye Exam: EOMI, Normal appearance, PERRL Pupil Exam: NORMAL ACCOMODATION, PERRL - ENT Exam ENT Exam: Mucous Membranes Moist, Normal Exam - Neck Exam Neck Exam: Full ROM, Normal Inspection. absent: Lymphadenopathy - Respiratory Exam Respiratory Exam: Decreased Breath Sounds - Cardiovascular Exam Cardiovascular Exam: REGULAR RHYTHM, +S1, +S2 - GI/Abdominal Exam GI & Abdominal Exam: Soft, Diminished Bowel Sounds - Rectal Exam Rectal Exam: Deferred
[2018-02-08] MEDS: Folic Acid 1 MG, Thiamine 100 MG, Multivitamin (MVI) 10 ML in Dextrose 5% In Water 1,00... IV SCH (17:49)
[2018-02-09] MEDS ORDERED: Influenza Vaccine 60 MCG/0.5 ML SYR (3 yr & up) IM ONE (10:00)
[2018-02-09] MEDS ORDERED: Pneumococcal 23-Valent Vaccine IM ONE (10:00)
--- NOTE | 2018-02-09 11:28 | CP.PCM.PN ---
Subjective - Date & Time of Evaluation Date of Evaluation: 02/09/18 Time of Evaluation: 08:30 - Subjective Subjective: clinically same Objective - Vital Signs/Intake and Output Vital Signs (last 24 hours): Temp Pulse Resp BP Pulse Ox 98.1 F 90 20 123/82 99 02/09/18 07:38 02/09/18 07:38 02/09/18 07:38 02/09/18 07:38 02/09/18 07:38 Intake and Output: 02/09/18 02/09/18 06:59 18:59 Intake Total 960 Output Total 700 Balance 260 - Medications Medications: Current Medications Clonidine HCl (Catapres) 0.1 mg PO Q4H PRN PRN Reason: Symptoms of alcohol withdrawl Enoxaparin Sodium (Lovenox) 40 mg SC DAILY [facility] Escitalopram Oxalate (Lexapro) 5 mg PO DAILY [facility] Last Admin: 02/09/18 09:49 Dose: 5 mg Folic Acid 1 mg/ Thiamine HCl 100 mg/ Multivitamins/Vitamin C 10 ml/ Dextrose 1,011.2 mls @ 75 mls/hr IV Q24H [facility] Last Admin: 02/08/18 17:49 Dose: 75 mls/hr Lorazepam (Ativan) 1 mg IVP Q4H PRN PRN Reason: CIWA>15 ETOH withdrawal Lorazepam (Ativan) 1 mg PO Q6H [facility]; Taper Stop: 02/13/18 12:14 Last Admin: 02/09/18 05:35 Dose: 1 mg Naltrexone HCl (Revia) 50 mg PO DAILY [facility] Last Admin: 02/09/18 09:49 Dose: 50 mg Pantoprazole Sodium (Protonix Inj) 40 mg IVP DAILY [facility] Last Admin: 02/09/18 09:47 Dose: 40 mg Thiamine HCl (Vitamin B1 Tab) 100 mg PO DAILY [facility] Last Admin: 02/09/18 09:47 Dose: 100 mg Trazodone HCl (Desyrel) 100 mg PO HS PRN PRN Reason: Insomnia Last Admin: 02/09/18 09:49 Dose: 100 mg - Labs Labs: 02/07/18 17:42 02/07/18 17:42 PT 10.9 SECONDS (9.7-12.2) 02/08/18 11:18 INR 1.0 02/08/18 11:18 APTT 30 SECONDS (21-34) 02/08/18 11:18 - Constitutional Appears: Well - Head Exam Head Exam: ATRAUMATIC, NORMAL INSPECTION, NORMOCEPHALIC - Eye Exam Eye Exam: EOMI, Normal appearance, PERRL Pupil Exam: NORMAL ACCOMODATION, PERRL - ENT Exam ENT Exam: Mucous Membranes Moist, Normal Exam - Neck Exam Neck Exam: Full ROM, Normal Inspection. absent: Lymphadenopathy - Respiratory Exam Respiratory Exam: Decreased Breath Sounds - Cardiovascular Exam Cardiovascular Exam: REGULAR RHYTHM, +S1, +S2 - GI/Abdominal Exam GI & Abdominal Exam: Soft, Diminished Bowel Sounds - Rectal Exam Rectal Exam: Deferred
--- NOTE | 2018-02-09 12:23 | CP.PCM.PN ---
<KieravicentebakariNate - Last Filed: 02/09/18 12:20> Subjective - Date & Time of Evaluation Date of Evaluation: 02/09/18 Time of Evaluation: 12:20 - Subjective Subjective: Patient is doing well. He tolerated full liquid diet, eating 100% meals. No dysphagia, no pain. He has plan for alcohol abstinence with psych. Objective - Vital Signs/Intake and Output Vital Signs (last 24 hours): Temp Pulse Resp BP Pulse Ox 98.1 F 90 20 123/82 99 02/09/18 07:38 02/09/18 07:38 02/09/18 07:38 02/09/18 07:38 02/09/18 07:38 Intake and Output: 02/09/18 02/09/18 06:59 18:59 Intake Total 960 Output Total 700 Balance 260 - Medications Medications: Current Medications Clonidine HCl (Catapres) 0.1 mg PO Q4H PRN PRN Reason: Symptoms of alcohol withdrawl Enoxaparin Sodium (Lovenox) 40 mg SC DAILY [facility] Escitalopram Oxalate (Lexapro) 5 mg PO DAILY [facility] Last Admin: 02/09/18 09:49 Dose: 5 mg Folic Acid 1 mg/ Thiamine HCl 100 mg/ Multivitamins/Vitamin C 10 ml/ Dextrose 1,011.2 mls @ 75 mls/hr IV Q24H [facility] Last Admin: 02/08/18 17:49 Dose: 75 mls/hr Lorazepam (Ativan) 1 mg IVP Q4H PRN PRN Reason: CIWA>15 ETOH withdrawal Lorazepam (Ativan) 1 mg PO Q6H [facility]; Taper Stop: 02/13/18 12:14 Last Admin: 02/09/18 11:39 Dose: 1 mg Naltrexone HCl (Revia) 50 mg PO DAILY [facility] Last Admin: 02/09/18 09:49 Dose: 50 mg Pantoprazole Sodium (Protonix Inj) 40 mg IVP DAILY [facility] Last Admin: 02/09/18 09:47 Dose: 40 mg Thiamine HCl (Vitamin B1 Tab) 100 mg PO DAILY [facility] Last Admin: 02/09/18 09:47 Dose: 100 mg Trazodone HCl (Desyrel) 100 mg PO HS PRN PRN Reason: Insomnia Last Admin: 02/09/18 09:49 Dose: 100 mg - Labs Labs: 02/07/18 17:42 02/07/18 17:42 PT 10.9 SECONDS (9.7-12.2) 02/08/18 11:18 INR 1.0 02/08/18 11:18 APTT 30 SECONDS (21-34) 02/08/18 11:18 - Constitutional Appears: Non-toxic, No Acute Distress - Head Exam Head Exam: NORMAL INSPECTION - Eye Exam Eye Exam: Normal appearance - ENT Exam ENT Exam: Mucous Membranes Moist - Respiratory Exam Respiratory Exam: Clear to Ausculation Bilateral, NORMAL BREATHING PATTERN - Cardiovascular Exam Cardiovascular Exam: REGULAR RHYTHM, +S1, +S2 - GI/Abdominal Exam GI & Abdominal Exam: Soft, Normal Bowel Sounds. absent: Tenderness - Extremities Exam Extremities Exam: Full ROM, Normal Inspection - Neurological Exam Neurological Exam: Alert, Awake, Oriented x3 - Psychiatric Exam Psychiatric exam: Normal Affect, Normal Mood - Skin Skin Exam: Dry, Normal Color Assessment and Plan - Assessment and Plan (Free Text) Assessment: #PEG tube dislodgment #Weight loss #Depression #Alcohol abuse #Throat cancer s/p resection, chemoradiation 05/2017 PLAN: -Patient self removed PEG tube 2 weeks ago -Patient states he is able to eat food without problems. No dysphagia. He thinks he is losing weight because he is depressed, and no appetite, only drinking alcohol. -Psych evaluating. Plan for alcohol rehab. -Tolerated FLD. Start soft diet. If tolerating, would not recommend PEG tube. -Patient needs regular follow up with PCP. -Recommend CIWA, thiamine, folate supplements -Recommend protein supplement drinks <Jarett Solo - Last Filed: 02/10/18 11:32> Objective - Vital Signs/Intake and Output Vital Signs (last 24 hours): Temp Pulse Resp BP Pulse Ox 98.1 F 90 20 123/82 99 02/09/18 07:38 02/09/18 07:38 02/09/18 07:38 02/09/18 07:38 02/09/18 07:38 Intake and Output: 02/09/18 02/09/18 06:59 18:59 Intake Total 960 Output Total 700 Balance 260 - Medications Medications: Current Medications Clonidine HCl (Catapres) 0.1 mg PO Q4H PRN PRN Reason: Symptoms of alcohol withdrawl Enoxaparin Sodium (Lovenox) 40 mg SC DAILY [facility] Escitalopram Oxalate (Lexapro) 5 mg PO DAILY [facility] Last Admin: 02/09/18 09:49 Dose: 5 mg Folic Acid 1 mg/ Thiamine HCl 100 mg/ Multivitamins/Vitamin C 10 ml/ Dextrose 1,011.2 mls @ 75 mls/hr IV Q24H [facility] Last Admin: 02/08/18 17:49 Dose: 75 mls/hr Lorazepam (Ativan) 1 mg IVP Q4H PRN PRN Reason: CIWA>15 ETOH withdrawal Lorazepam (Ativan) 1 mg PO Q6H [facility]; Taper Stop: 02/13/18 12:14 Last Admin: 02/09/18 11:39 Dose: 1 mg Naltrexone HCl (Revia) 50 mg PO DAILY [facility] Last Admin: 02/09/18 09:49 Dose: 50 mg Pantoprazole Sodium (Protonix Inj) 40 mg IVP DAILY [facility] Last Admin: 02/09/18 09:47 Dose: 40 mg Thiamine HCl (Vitamin B1 Tab) 100 mg PO DAILY [facility] Last Admin: 02/09/18 09:47 Dose: 100 mg Trazodone HCl (Desyrel) 100 mg PO HS PRN PRN Reason: Insomnia Last Admin: 02/09/18 09:49 Dose: 100 mg - Labs Labs: 02/07/18 17:42 02/07/18 17:42 PT 10.9 SECONDS (9.7-12.2) 02/08/18 11:18 INR 1.0 02/08/18 11:18 APTT 30 SECONDS (21-34) 02/08/18 11:18 Attending/Attestation - Attestation I have personally seen and examined this patient.: Yes I have fully participated in the care of the patient.: Yes I have reviewed all pertinent clinical information, including history, physical exam and plan: Yes Notes (Text): 02/09/18 13:15 The pt was seen and examined. Chart reviewed. Assessment, findings and recommendations as documented above were discussed with Dr. Miranda.
--- NOTE | 2018-02-09 14:19 | CARD ---
APPROVED REPORT Date of service: 02/07/2018 EKG Measurement Heart [id number] <Conclusion> Normal sinus rhythm Prolonged QT Abnormal ECG
--- NOTE | 2018-02-09 15:18 | CP.PCM.PN ---
Subjective - Date & Time of Evaluation Date of Evaluation: 02/09/18 Time of Evaluation: 14:00 - Subjective Subjective: Neurology Consultation Follow-Up Note: Mr. Han was evaluated at bedside. He reports feeling generally well today and admits to an improvement in his appetite since yesterday. He denies any seizure activity, headache, visual changes, dizziness, chest pain, shortness of breath, nausea/vomiting, unsteadiness. No overnight or acute events per nursing staff. Objective - Vital Signs/Intake and Output Vital Signs (last 24 hours): Temp Pulse Resp BP Pulse Ox 98.1 F 90 20 123/82 99 02/09/18 07:38 02/09/18 07:38 02/09/18 07:38 02/09/18 07:38 02/09/18 14:38 Intake and Output: 02/09/18 02/09/18 06:59 18:59 Intake Total 1720 Output Total 700 Balance 1020 - Medications Medications: Current Medications Clonidine HCl (Catapres) 0.1 mg PO Q4H PRN PRN Reason: Symptoms of alcohol withdrawl Enoxaparin Sodium (Lovenox) 40 mg SC DAILY [facility] Escitalopram Oxalate (Lexapro) 5 mg PO DAILY [facility] Last Admin: 02/09/18 09:49 Dose: 5 mg Folic Acid 1 mg/ Thiamine HCl 100 mg/ Multivitamins/Vitamin C 10 ml/ Dextrose 1,011.2 mls @ 75 mls/hr IV Q24H [facility] Last Admin: 02/08/18 17:49 Dose: 75 mls/hr Lorazepam (Ativan) 1 mg IVP Q4H PRN PRN Reason: CIWA>15 ETOH withdrawal Lorazepam (Ativan) 1 mg PO Q6H [facility]; Taper Stop: 02/13/18 12:14 Last Admin: 02/09/18 11:39 Dose: 1 mg Naltrexone HCl (Revia) 50 mg PO DAILY [facility] Last Admin: 02/09/18 09:49 Dose: 50 mg Pantoprazole Sodium (Protonix Inj) 40 mg IVP DAILY [facility] Last Admin: 02/09/18 09:47 Dose: 40 mg Thiamine HCl (Vitamin B1 Tab) 100 mg PO DAILY [facility] Last Admin: 02/09/18 09:47 Dose: 100 mg Trazodone HCl (Desyrel) 100 mg PO HS PRN PRN Reason: Insomnia Last Admin: 02/09/18 09:49 Dose: 100 mg - Labs Labs: 02/07/18 17:42 02/07/18 17:42 PT 10.9 SECONDS (9.7-12.2) 02/08/18 11:18 INR 1.0 02/08/18 11:18 APTT 30 SECONDS (21-34) 02/08/18 11:18 - Constitutional Appears: Well, Non-toxic, No Acute Distress - Head Exam Head Exam: ATRAUMATIC, NORMAL INSPECTION, NORMOCEPHALIC - Eye Exam Eye Exam: EOMI, Normal appearance - Respiratory Exam Respiratory Exam: NORMAL BREATHING PATTERN - Extremities Exam Extremities Exam: Full ROM, Normal Inspection - Neurological Exam Neurological Exam: Alert, Awake, CN II-XII Intact, Normal Gait, Oriented x3 Neuro motor strength exam: Left Upper Extremity: 5, Right Upper Extremity: 5, Left Lower Extremity: 5, Right Lower Extremity: 5 - Psychiatric Exam Psychiatric exam: Normal Affect, Normal Mood Assessment and Plan (1) History of seizure Assessment & Plan: -Mr. Han has not had any recent seizures. -Continue CITX protocol for psych. -Detox per psych. -No further Neuro work-up necessary unless changes in condition occur. -Reconsult as needed. Case discussed with Dr. Hong. Thank you for allowing us to participate in the care of this patient. Status: Chronic
[2018-02-09] MEDS: Folic Acid 1 MG, Thiamine 100 MG, Multivitamin (MVI) 10 ML in Dextrose 5% In Water 1,00... IV SCH (17:28)
[2018-02-10 07:42] LABS: BASO % 0.2 % (0.0-2.0); EOS # 0.1 K/uL (0.0-0.7); LYMPH # 0.6 K/uL (1.0-4.3); LYMPH % 22.6 % (20.0-40.0); MEAN CELL VOLUME 98.8 fL (80.0-94.0); MEAN CORPUSCULAR HEMOGLOBIN 34.3 pg (27.0-31.0); MEAN CORPUSCULAR HGB CONC 34.7 g/dL (33.0-37.0); MEAN PLATELET VOLUME 8.1 fL (7.2-11.7); MONO # 0.3 K/uL (0.0-0.8); MONO % 9.9 % (0.0-10.0); NEUT # 1.8 K/uL (1.8-7.0); NEUT % 65.3 % (50.0-75.0); NRBC % 0.1 % (0.0-2.0); RBC 3.07 Mil/uL (4.40-5.90); RED CELL DISTRIBUTION WIDTH 14.2 % (11.5-14.5)
[2018-02-10 08:01] LABS: HEMOGLOBIN 10.5 g/dL (12.0-18.0); WHITE BLOOD COUNT 2.8 K/uL (4.8-10.8)
[2018-02-10 08:07] LABS: BLOOD UREA NITROGEN 8 mg/dL (9-20); CALCIUM 8.9 mg/dl (8.6-10.4); GFR NON-AFRICAN AMERICAN > 60
--- NOTE | 2018-02-10 09:58 | PCM.PYCHPN ---
Psychiatric Progress Note - Psychiatric Progress Note Patient seen today, length of contact: 16 min Patient Chief Complaint: "I am not doing well" Problems Identified/Issues Discussed: The pt is seen, chart reviewed, case discussed with staff. The pt is compliant with medications and reports no side-effects. Symptoms are improving but needs more time to stabilize. Support given, psycho-education provided. After care discussed Transfer to detox to complete detox Medication Change: Yes (detox changes daily) Medical Record Reviewed: Yes Mental Status Examination - Cognitive Function Orientation: Person, Place, Situation, Time Memory: Intact Attention: WNL Concentration: Poor Association: WNL Fund of Knowledge: WNL - Mood Mood: Depressed, Anxious - Affect Affect: Constricted - Speech Speech: Appropriate - Formal Thought Process Formal Thought Process: No Impairment - Suicidal Ideation Suicidal Ideation: No - Homicidal Ideation Homicidal Ideation: No Goal/Treatment Plan - Goal/Treatment Plan Need for Continued Stay: Discharge may exacerbated symptoms, Severe functional impairment Progress Toward Problem(s) and Goals/Treatment Plan: Taper with Librium Gabapentin for augmentation Lexapro for depression As needed medications All risks, benefits and alternatives of the meds discussed, and the pt agreed and understood. No medications for depression for now but CBT and support Attend groups and activities Supportive therapy and psychoeducation PR for abstinence CBT for relapse prevention Encourage MAT Refer to rehab or IOP, and self-help groups Smoking cessation with PR Nicotine patch if needed Transfer to detox when medically cleared.
--- NOTE | 2018-02-10 11:52 | PCM.BM ---
<Helene Brenner - Last Filed: 02/10/18 11:53> Treatment Plan Problems - Problems identified on initial assessmt Potential for alcohol withdrawal Date Initiated: 02/10/18 Assessment reference: NA Treatment assets and liabiliti Patient Assests: cooperative, motivated, ADL independent, negotiates basic needs Patient Liabilities: financial problems, relationship conflicts, substance abuse , medical problems - Milieu Protocol Maintain good personal hygiene: daily Encourage regular showers, daily Remind patient to perform daily oral care, daily Assist patient to perform ADL's, every shift Encourage regular showers, every shift Remind patient to perform daily oral care, every shift Assist patient to perform ADL's Maintain personal safety: daily Educate patient to report safety concerns to staff, daily Monitor environment for contraband/sharps, every shift Educate patient to report safety concerns to staff, every shift Monitor environment for contraband/sharps Medication safety: Monitor for expected outcome, potential side effects: daily, every shift, Assess barriers to learning: daily, every shift, Assess readiness for medication education: daily, every shift Milieu Narrative: Taper with Librium Gabapentin for augmentation Lexapro for depression As needed medications All risks, benefits and alternatives of the meds discussed, and the pt agreed and understood. No medications for depression for now but CBT and support Attend groups and activities Supportive therapy and psychoeducation MD for abstinence CBT for relapse prevention Encourage MAT Refer to rehab or IOP, and self-help groups Smoking cessation with MD Nicotine patch if needed Transfer to detox when medically cleared. CALL SOLUTION MAKE UP OPERATOR FIRST 34 min Discharge/Continuing Care - Treatment Team Participation Patient/Family/SO Statement: Taper with Librium Gabapentin for augmentation Lexapro for depression As needed medications All risks, benefits and alternatives of the meds discussed, and the pt agreed and understood. No medications for depression for now but CBT and support Attend groups and activities Supportive therapy and psychoeducation MD for abstinence CBT for relapse prevention Encourage MAT Refer to rehab or IOP, and self-help groups Smoking cessation with MD Nicotine patch if needed Transfer to detox when medically cleared. CALL SOLUTION MAKE UP OPERATOR FIRST 34 min <Dori Young - Last Filed: 02/11/18 14:08> Family Contact Family involvement: Family/SO is involved Family contact name: Family contacted how many times per week?: 2 - Goals for Treatment Patient goals for treatment: Complete detox and apply for SHORT-term rehab concurrent with oncology follow-ups. Discharge/Continuing Care - Education Needs Education Needs: Patient Medication, Patient Diagnosis/Disease Process, Patient Coping Skills, Patient Anger Management skills, Patient Placement options, Patient Community resources, Significant Other Diagnosis/Disease Process, Sig nificant Other Placement options, Significant Other Community resources - Discharge Discharge Criteria: No longer exhibiting s/s of withdrawal, Reduction of target symptoms Discharge to:: Home, With Family - Treatment Team Participation Patient/Family/SO Statement: 02/11/18 14:10 "I wanna go to short-term rehab but I gotta keep my oncology follow-up appointments too". Discussed with Family/SO: No Was Patient/Family/SO present at Treatment Team Meeting: Yes <Parish Shelton - Last Filed: 02/13/18 09:00> - Diagnosis (1) Alcohol dependence Status: Acute Interventions: 02/11/18 19:00 * Assess 7x/week regarding severity of withdrawal * Educate regarding risks, benefits, side effects and alternatives of medications * Use Motivational Interviewing for abstinence * Use CBT for relapse prevention * Medication management for withdrawal symptoms * Encourage medication assisted treatment *
--- NOTE | 2018-02-10 12:37 | CP.PCM.PN ---
<Nate Miranda - Last Filed: 02/10/18 12:35> Subjective - Date & Time of Evaluation Date of Evaluation: 02/10/18 Time of Evaluation: 12:35 - Subjective Subjective: Patient is doing well. He tolerated breakfast, eating eggs and toast. No complaints. He is in rehab now. Objective - Vital Signs/Intake and Output Vital Signs (last 24 hours): Temp Pulse Resp BP Pulse Ox 97.6 F 90 20 118/71 97 02/10/18 07:30 02/10/18 07:30 02/10/18 07:30 02/10/18 07:30 02/10/18 08:27 Intake and Output: 02/10/18 02/10/18 06:59 18:59 Intake Total 900 Output Total 400 Balance 500 - Medications Medications: Current Medications Clonidine HCl (Catapres) 0.1 mg PO Q4H PRN PRN Reason: Symptoms of alcohol withdrawl Escitalopram Oxalate (Lexapro) 10 mg PO DAILY [facility] Gabapentin (Neurontin) 600 mg PO TID [facility] Last Admin: 02/10/18 09:36 Dose: 600 mg Lorazepam (Ativan) 1 mg IVP Q4H PRN PRN Reason: CIWA>15 ETOH withdrawal Lorazepam (Ativan) 1 mg PO Q8H [facility]; Taper Stop: 02/13/18 12:14 Last Admin: 02/10/18 06:01 Dose: 1 mg Naltrexone HCl (Revia) 50 mg PO DAILY [facility] Last Admin: 02/10/18 09:37 Dose: 50 mg Pantoprazole Sodium (Protonix Ec Tab) 40 mg PO DAILY [facility] Thiamine HCl (Vitamin B1 Tab) 100 mg PO DAILY [facility] Last Admin: 02/10/18 09:36 Dose: 100 mg Trazodone HCl (Desyrel) 100 mg PO HS [facility] - Labs Labs: 02/10/18 07:25 02/10/18 07:25 PT 10.9 SECONDS (9.7-12.2) 02/08/18 11:18 INR 1.0 02/08/18 11:18 APTT 30 SECONDS (21-34) 02/08/18 11:18 - Constitutional Appears: Non-toxic, No Acute Distress - Head Exam Head Exam: NORMAL INSPECTION - Eye Exam Eye Exam: EOMI, Normal appearance - ENT Exam ENT Exam: Mucous Membranes Moist - GI/Abdominal Exam GI & Abdominal Exam: Soft, Normal Bowel Sounds. absent: Tenderness - Extremities Exam Extremities Exam: Full ROM, Normal Inspection - Neurological Exam Neurological Exam: Alert, Awake, Oriented x3 - Psychiatric Exam Psychiatric exam: Normal Affect, Normal Mood - Skin Skin Exam: Dry, Normal Color Assessment and Plan - Assessment and Plan (Free Text) Assessment: #PEG tube dislodgment #Weight loss #Depression #Alcohol abuse #Throat cancer s/p resection, chemoradiation 05/2017 PLAN: -Patient self removed PEG tube 2 weeks ago -Patient states he is able to eat food without problems. No dysphagia. He thinks he is losing weight because he is depressed, and no appetite, only drinking alco hol. -Psych evaluating. Plan for alcohol rehab. -Tolerated soft diet. No need for PEG tube. -Patient needs regular follow up with PCP. -Recommend CIWA, thiamine, folate supplements -Recommend protein supplement drinks -Signing off. Please reconsult as needed. <Jarett Solo - Last Filed: 02/10/18 13:01> Objective - Vital Signs/Intake and Output Vital Signs (last 24 hours): Temp Pulse Resp BP Pulse Ox 97.6 F 90 20 118/71 97 02/10/18 07:30 02/10/18 07:30 02/10/18 07:30 02/10/18 07:30 02/10/18 08:27 Intake and Output: 02/10/18 02/10/18 06:59 18:59 Intake Total 900 Output Total 400 Balance 500 - Medications Medications: Current Medications Clonidine HCl (Catapres) 0.1 mg PO Q4H PRN PRN Reason: Symptoms of alcohol withdrawl Escitalopram Oxalate (Lexapro) 10 mg PO DAILY [facility] Gabapentin (Neurontin) 600 mg PO TID [facility] Last Admin: 02/10/18 09:36 Dose: 600 mg Lorazepam (Ativan) 1 mg IVP Q4H PRN PRN Reason: CIWA>15 ETOH withdrawal Lorazepam (Ativan) 1 mg PO Q8H [facility]; Taper Stop: 02/13/18 12:14 Last Admin: 02/10/18 06:01 Dose: 1 mg Naltrexone HCl (Revia) 50 mg PO DAILY [facility] Last Admin: 02/10/18 09:37 Dose: 50 mg Pantoprazole Sodium (Protonix Ec Tab) 40 mg PO DAILY [facility] Thiamine HCl (Vitamin B1 Tab) 100 mg PO DAILY [facility] Last Admin: 02/10/18 09:36 Dose: 100 mg Trazodone HCl (Desyrel) 100 mg PO HS [facility] - Labs Labs: 02/10/18 07:25 02/10/18 07:25 PT 10.9 SECONDS (9.7-12.2) 02/08/18 11:18 INR 1.0 02/08/18 11:18 APTT 30 SECONDS (21-34) 02/08/18 11:18 Attending/Attestation - Attestation I have personally seen and examined this patient.: Yes I have fully participated in the care of the patient.: Yes I have reviewed all pertinent clinical information, including history, physical exam and plan: Yes Notes (Text): 02/10/18 13:00 The pt was seen, examined and discussed with Dr. Miranda. Findings, assessment and recommendations above.
--- NOTE | 2018-02-10 15:27 | CP.PCM.PN ---
Subjective - Date & Time of Evaluation Date of Evaluation: 02/10/18 Time of Evaluation: 13:00 - Subjective Subjective: clinically same Objective - Vital Signs/Intake and Output Vital Signs (last 24 hours): Temp Pulse Resp BP Pulse Ox 97.9 F 108 H 20 95/68 L 96 02/10/18 13:31 02/10/18 13:31 02/10/18 13:31 02/10/18 13:31 02/10/18 13:31 Intake and Output: 02/10/18 02/10/18 06:59 18:59 Intake Total 900 Output Total 400 Balance 500 - Medications Medications: Current Medications Clonidine HCl (Catapres) 0.1 mg PO Q4H PRN PRN Reason: Symptoms of alcohol withdrawl Escitalopram Oxalate (Lexapro) 10 mg PO DAILY [facility] Gabapentin (Neurontin) 600 mg PO TID [facility] Last Admin: 02/10/18 13:08 Dose: 600 mg Lorazepam (Ativan) 1 mg IVP Q4H PRN PRN Reason: CIWA>15 ETOH withdrawal Lorazepam (Ativan) 1 mg PO Q8H [facility]; Taper Stop: 02/13/18 12:14 Last Admin: 02/10/18 13:08 Dose: 1 mg Naltrexone HCl (Revia) 50 mg PO DAILY [facility] Last Admin: 02/10/18 09:37 Dose: 50 mg Pantoprazole Sodium (Protonix Ec Tab) 40 mg PO DAILY [facility] Potassium Chloride (Klor-Con 10) 10 meq PO BRK [facility] Thiamine HCl (Vitamin B1 Tab) 100 mg PO DAILY [facility] Last Admin: 02/10/18 09:36 Dose: 100 mg Trazodone HCl (Desyrel) 100 mg PO HS [facility] - Labs Labs: 02/10/18 07:25 02/10/18 07:25 PT 10.9 SECONDS (9.7-12.2) 02/08/18 11: INR 1.0 02/08/18 11:18 APTT 30 SECONDS (21-34) 02/08/18 11:18 - Constitutional Appears: Well - Head Exam Head Exam: ATRAUMATIC, NORMAL INSPECTION, NORMOCEPHALIC - Eye Exam Eye Exam: EOMI, Normal appearance, PERRL Pupil Exam: NORMAL ACCOMODATION, PERRL - ENT Exam ENT Exam: Mucous Membranes Moist, Normal Exam - Neck Exam Neck Exam: Full ROM, Normal Inspection. absent: Lymphadenopathy - Respiratory Exam Respiratory Exam: Decreased Breath Sounds - Cardiovascular Exam Cardiovascular Exam: REGULAR RHYTHM, +S1, +S2 - GI/Abdominal Exam GI & Abdominal Exam: Soft, Diminished Bowel Sounds - Rectal Exam Rectal Exam: Deferred Assessment and Plan - Assessment and Plan (Free Text) Plan: pt medically stable to be rnasferred on psych floor
[2018-02-10] MEDS: Potassium Chloride 10 mEq ER Tab PO SCH (16:14)
[2018-02-11 07:13] LABS: BASO % 0.3 % (0.0-2.0); EOS % 0.7 % (0.0-4.0); HEMOGLOBIN 10.5 g/dL (12.0-18.0); LYMPH # 0.8 K/uL (1.0-4.3); LYMPH % 13.2 % (20.0-40.0); MEAN CELL VOLUME 98.3 fL (80.0-94.0); MEAN CORPUSCULAR HEMOGLOBIN 34.6 pg (27.0-31.0); MEAN CORPUSCULAR HGB CONC 35.2 g/dL (33.0-37.0); MEAN PLATELET VOLUME 7.1 fL (7.2-11.7); MONO # 0.6 K/uL (0.0-0.8); MONO % 9.9 % (0.0-10.0); NEUT # 4.4 K/uL (1.8-7.0); NEUT % 75.9 % (50.0-75.0); RBC 3.04 Mil/uL (4.40-5.90); RED CELL DISTRIBUTION WIDTH 14.3 % (11.5-14.5)
[2018-02-11 07:38] LABS: WHITE BLOOD COUNT 5.8 K/uL (4.8-10.8)
[2018-02-11 07:48] LABS: ALB/GLOB RATIO 1.3 (1.0-2.1); ALBUMIN 3.7 g/dL (3.5-5.0); ALT/SGPT 57 U/L (21-72); AST/SGOT 47 U/L (17-59); BLOOD UREA NITROGEN 14 mg/dL (9-20); CALCIUM 9.3 mg/dl (8.6-10.4); GFR NON-AFRICAN AMERICAN > 60
[2018-02-11] MEDS: Potassium Chloride 10 mEq ER Tab PO SCH (09:00)
[2018-02-11] MEDS: Pantoprazole 40 mg EC Tab PO SCH (09:33)
--- NOTE | 2018-02-11 22:21 | PCM.PYCHPN ---
Psychiatric Progress Note - Psychiatric Progress Note Patient seen today, length of contact: 19 min Patient Chief Complaint: "I am tired" Problems Identified/Issues Discussed: The pt is seen, chart reviewed, case discussed with staff. Support and psychoeducation given, CBT and [place] used briefly No new symptoms reported, improving slowly and needs more time No SEs from medications, risks discussed. After care discussed. He wants to go to a rehab Medication Change: Yes (detox changes daily) Medical Record Reviewed: Yes Mental Status Examination - Cognitive Function Orientation: Person, Place, Situation, Time Memory: Intact Attention: WNL Concentration: Poor Association: WNL Fund of Knowledge: WNL - Mood Mood: Depressed, Anxious - Affect Affect: Constricted - Speech Speech: Appropriate - Formal Thought Process Formal Thought Process: No Impairment - Suicidal Ideation Suicidal Ideation: No - Homicidal Ideation Homicidal Ideation: No Goal/Treatment Plan - Goal/Treatment Plan Need for Continued Stay: Discharge may exacerbated symptoms, Severe functional impairment Progress Toward Problem(s) and Goals/Treatment Plan: Taper with Librium Gabapentin for augmentation Lexapro for depression As needed medications All risks, benefits and alternatives of the meds discussed, and the pt agreed and understood. No medications for depression for now but CBT and support Attend groups and activities Supportive therapy and psychoeducation [place] for abstinence CBT for relapse prevention Encourage MAT Refer to rehab or IOP, and self-help groups Smoking cessation with [place] Nicotine patch if needed Estimated Date of D/C: 02/13/18
--- NOTE | 2018-02-11 23:57 | CP.PCM.PN ---
Subjective - Date & Time of Evaluation Date of Evaluation: 02/11/18 Time of Evaluation: 11:30 - Subjective Subjective: clinically same Objective - Vital Signs/Intake and Output Vital Signs (last 24 hours): Temp Pulse Resp BP Pulse Ox 98 F 100 H 18 108/75 98 02/11/18 18:53 02/11/18 18:53 02/11/18 18:53 02/11/18 18:53 02/11/18 18:53 - Medications Medications: Current Medications Clonidine HCl (Catapres) 0.1 mg PO Q4H PRN PRN Reason: Symptoms of alcohol withdrawl Escitalopram Oxalate (Lexapro) 10 mg PO DAILY [facility] Last Admin: 02/11/18 09:33 Dose: 10 mg Gabapentin (Neurontin) 600 mg PO TID [facility] Last Admin: 02/11/18 18:07 Dose: 600 mg Lorazepam (Ativan) 1 mg IVP Q4H PRN PRN Reason: CIWA>15 ETOH withdrawal Lorazepam (Ativan) 1 mg PO Q12H [facility]; Taper Stop: 02/13/18 12:14 Last Admin: 02/11/18 23:42 Dose: 1 mg Magnesium Oxide (Mag-Ox) 400 mg PO BID [facility] Naltrexone HCl (Revia) 50 mg PO DAILY [facility] Last Admin: 02/11/18 09:33 Dose: 50 mg Pantoprazole Sodium (Protonix Ec Tab) 40 mg PO DAILY [facility] Last Admin: 02/11/18 09:33 Dose: 40 mg Potassium Chloride (Klor-Con 10) 10 meq PO BRK [facility] Last Admin: 02/11/18 09:00 Dose: 10 meq Thiamine HCl (Vitamin B1 Tab) 100 mg PO DAILY [facility] Last Admin: 02/11/18 09:33 Dose: 100 mg Trazodone HCl (Desyrel) 100 mg PO HS [facility] Last Admin: 02/11/18 21:06 Dose: Not Given - Labs Labs: 02/11/18 07:09 02/11/18 07:09 PT 10.9 SECONDS (9.7-12.2) 02/08/18 11:18 INR 1.0 02/08/18 11:18 APTT 30 SECONDS (21-34) 02/08/18 11:18 - Constitutional Appears: Well - Head Exam Head Exam: ATRAUMATIC, NORMAL INSPECTION, NORMOCEPHALIC - Eye Exam Eye Exam: EOMI, Normal appearance, PERRL Pupil Exam: NORMAL ACCOMODATION, PERRL - ENT Exam ENT Exam: Mucous Membranes Moist, Normal Exam - Neck Exam Neck Exam: Full ROM, Normal Inspection. absent: Lymphadenopathy - Respiratory Exam Respiratory Exam: Decreased Breath Sounds - Cardiovascular Exam Cardiovascular Exam: REGULAR RHYTHM, +S1, +S2 - GI/Abdominal Exam GI & Abdominal Exam: Soft, Diminished Bowel Sounds - Rectal Exam Rectal Exam: Deferred
[2018-02-12] MEDS: Potassium Chloride 10 mEq ER Tab PO SCH (08:53)
[2018-02-12] MEDS: Pantoprazole 40 mg EC Tab PO SCH (09:58)
[2018-02-12] MEDS: Magnesium Oxide 400 mg Tab UD PO SCH ×2 (09:58→17:16)
--- NOTE | 2018-02-12 13:01 | CP.PCM.PN ---
Subjective - Date & Time of Evaluation Date of Evaluation: 02/12/18 Time of Evaluation: 11:50 - Subjective Subjective: clinically same Objective - Vital Signs/Intake and Output Vital Signs (last 24 hours): Temp Pulse Resp BP Pulse Ox 97.8 F 107 H 20 130/81 99 02/12/18 09:00 02/12/18 09:00 02/12/18 09:00 02/12/18 09:00 02/12/18 09:00 - Medications Medications: Current Medications Clonidine HCl (Catapres) 0.1 mg PO Q4H PRN PRN Reason: Symptoms of alcohol withdrawl Escitalopram Oxalate (Lexapro) 10 mg PO DAILY [facility] Last Admin: 02/12/18 09:58 Dose: 10 mg Gabapentin (Neurontin) 600 mg PO TID [facility] Last Admin: 02/12/18 09:58 Dose: 600 mg Lorazepam (Ativan) 1 mg IVP Q4H PRN PRN Reason: CIWA>15 ETOH withdrawal Lorazepam (Ativan) 1 mg PO Q24H [facility]; Taper Stop: 02/13/18 12:14 Last Admin: 02/12/18 11:42 Dose: 1 mg Magnesium Oxide (Mag-Ox) 400 mg PO BID [facility] Last Admin: 02/12/18 09:58 Dose: 400 mg Naltrexone HCl (Revia) 50 mg PO DAILY [facility] Last Admin: 02/12/18 09:58 Dose: 50 mg Pantoprazole Sodium (Protonix Ec Tab) 40 mg PO DAILY [facility] Last Admin: 02/12/18 09:58 Dose: 40 mg Potassium Chloride (Klor-Con 10) 10 meq PO BRK [facility] Last Admin: 02/12/18 08:53 Dose: Not Given Thiamine HCl (Vitamin B1 Tab) 100 mg PO DAILY [facility] Last Admin: 02/12/18 09:58 Dose: 100 mg Trazodone HCl (Desyrel) 100 mg PO HS [facility] Last Admin: 02/11/18 21:06 Dose: Not Given - Labs Labs: 02/11/18 07:09 02/11/18 07:09 PT 10.9 SECONDS (9.7-12.2) 02/08/18 11:18 INR 1.0 02/08/18 11:18 APTT 30 SECONDS (21-34) 02/08/18 11:18 - Constitutional Appears: Well - Head Exam Head Exam: ATRAUMATIC, NORMAL INSPECTION, NORMOCEPHALIC - Eye Exam Eye Exam: EOMI, Normal appearance, PERRL Pupil Exam: NORMAL ACCOMODATION, PERRL - ENT Exam ENT Exam: Mucous Membranes Moist, Normal Exam - Neck Exam Neck Exam: Full ROM, Normal Inspection. absent: Lymphadenopathy - Respiratory Exam Respiratory Exam: Decreased Breath Sounds - Cardiovascular Exam Cardiovascular Exam: REGULAR RHYTHM, +S1, +S2 - GI/Abdominal Exam GI & Abdominal Exam: Soft, Diminished Bowel Sounds - Rectal Exam Rectal Exam: Deferred
[2018-02-13] MEDS: Potassium Chloride 10 mEq ER Tab PO SCH (08:16)
--- NOTE | 2018-02-13 09:03 | PCM.PYCHDC ---
Mental Status Examination - Mental Status Examination Orientation: Person Discharge Summary - Discharge Note Consultations:: List each consultation separately and include: 1. Reason for request. 2. Findings. 3. Follow-up Summary of Hospital Course include:: 1. Description of specific treatment plan utilized for patients during their course of treatmen. 2. Summarize the time- course for resolution of acute symptoms and/or regressed behaviors. 3. Describe issues identified and worked on during hospitalization. 4. Describe medication utilized. 5. Describe medical problems identified and treated. 6. Reassessment of suicide risk Summary of Hospital Course: The patient is seen, chart reviewed and case discussed. He is known from a detox admission. Consult was requested for his alcohol withdrawal This is a 52-year-old male, with 2 children, both adults, lives with his , employed. The patient is drinking 1 pint of liquor every day and reports withdrawal symptoms. He has a long history of alcohol use and complications, but he also used on and off over the years and he finally relapsed 2 years ago before last detox with us. He says he was in a [facility] and they made him stop his naltrexone and effexor and he relapsed. That was about 2 weeks ago he says. Since then he was on a daily binge. He denies drug use He has depressive symptoms Past psych history: He was treated for depression years ago and also this year. Wants to resume lexapro Family psych history: Brother of drug and alcohol use. Father had alcohol dependence but clean. Medical history: He had tongue cancer and low platelets. He was given an NG tube but he pulled it out due to alcoholism, and he has lost significant weight since then. The pt will go to [facility] - Diagnosis (1) Alcohol dependence Current Visit: No Status: Acute - Final Diagnosis (DSM 5) Condition upon Discharge: GOOD Disposition: HOME/ ROUTINE Follow-up Treatment Plan: Taper with Librium Gabapentin for augmentation Lexapro for depression As needed medications All risks, benefits and alternatives of the meds discussed, and the pt agreed and understood. No medications for depression for now but CBT and support Attend groups and activities Supportive therapy and psychoeducation [place] for abstinence CBT for relapse prevention Encourage MAT Refer to rehab or IOP, and self-help groups Smoking cessation with [place] Nicotine patch if needed Prescriptions/Medication Reconciliation: Escitalopram [Lexapro] 10 mg PO DAILY #30 tab Gabapentin [Neurontin] 600 mg PO TID #90 tab Magnesium Oxide [Mag-Ox] 400 mg PO DAILY #30 tab Naltrexone [Revia] 50 mg PO DAILY #30 tab Pantoprazole [Protonix EC Tab] 40 mg PO DAILY #30 ect traZODone [Desyrel] 100 mg PO HS #30 tab
[2018-02-13] MEDS: Pantoprazole 40 mg EC Tab PO SCH (10:25)
[2018-02-13] MEDS: Magnesium Oxide 400 mg Tab UD PO SCH (10:25)
[2018-02-13 11:35] VITALS: BP 117/77; PULSE 106; RESP 20; TEMP 97.8; O2SAT 100
== END 2018-02-13 12:05 | disposition home or self-care (01) | DRG 895 ==
LOC: C.ER 16:44 → C.9E 18:46 → C.3T 19:17 → OBSVTOIN 02-10 09:55 → C.7D 02-10 10:23 → C.3T 02-10 10:26 → C.7D 02-10 10:58
PROVIDERS: ADMIT Internal Medicine Nephrology; ATTEND Internal Medicine Nephrology
PROC: HZ2ZZZZ Detoxification Services for Substance Abuse Treatment (ICD-10-PCS; principal; 2018-02-10)
PROC: HZ59ZZZ Individual Psychotherapy for Substance Abuse Treatment, Supportive (ICD-10-PCS; 2018-02-10)
PROC: HZ46ZZZ Group Counseling for Substance Abuse Treatment, Psychoeducation (ICD-10-PCS; 2018-02-10)
PROC: GZ3ZZZZ Medication Management (ICD-10-PCS; 2018-02-10)
PROC: HZ80ZZZ Medication Management for Substance Abuse Treatment, Nicotine Replacement (ICD-10-PCS; 2018-02-10)
DX: F10.239 Alcohol dependence with withdrawal, unspecified (principal); R62.7 Adult failure to thrive; F33.2 Major depressive disorder, recurrent severe without psychotic features; G40.509 Epileptic seizures related to external causes, not intractable, without status epilepticus; D69.6 Thrombocytopenia, unspecified; R63.4 Abnormal weight loss; Y90.7 Blood alcohol level of 200-239 mg/100 ml; Z43.1 Encounter for attention to gastrostomy; Z85.810 Personal history of malignant neoplasm of tongue; Z72.0 Tobacco use; Z90.49 Acquired absence of other specified parts of digestive tract; Z92.21 Personal history of antineoplastic chemotherapy; Z92.3 Personal history of irradiation